=== PATIENT | male | born 1945 | race Caucasian/White ===

== ENCOUNTER 2016-09-09 08:01 | Inpatient (IN) | payer MEDICARE ==
--- NOTE | ~2016-09-09 | CN ---
Consultation Report [place] [id number] [facility] [place]. [address] NAME: TAMMY PALM : 45 STATUS : ADM IN [facility]#: [id number] AGE: 71 ADM/REG DATE : 09/09/16 MR#: [id number] REPORT SERV DATE: 09/09/16 DICTATED BY: WALDO HEADLEY DATE: 09/09/16 REPORT STATUS : Draft TRANSCRIBED BY: MODL DATE: 09/09/16 CONSULT DATE OF CONSULTATION: 09/09/2016 REASON FOR CONSULTATION: Diabetes management. HISTORY OF PRESENT ILLNESS: This is a 71-year-old gentleman who was admitted to the hospital for outpatient cardiac cath. The cath revealed multivessel coronary artery disease, and THE patient is now being evaluated for a CABG. The patient will be admitted and as the patient has a history of diabetes, Hospitalist Service was consulted to manage diabetes pre and postop. The patient otherwise has no acute complaints. The patient feels right at baseline. As far as diabetes, the patient is taking glipizide as the only medication therapy for his diabetes. The patient has never used insulin and he is yet to have any complications related to diabetes. REVIEW OF SYSTEMS: The patient denies any fevers or chills. Also, 14-point review of systems reviewed and negative other than mentioned above. MEDICATIONS: 1. Norvasc 2.5 mg p.o. daily. 2. Aspirin 81 mg p.o. daily. 3. Atorvastatin 40 mg p.o. q.h.s. 4. Coreg 12.5 mg p.o. b.i.d. 5. Glipizide XL 5 mg p.o. daily. 6. Lisinopril 2.5 mg p.o. daily. 7. Sertraline 50 mg p.o. q.h.s. 8. The patient has been on Eliquis prior to admission for atrial fibrillation. PAST MEDICAL HISTORY: 1. Coronary artery disease. 2. Fme-rpykjat-ubqxipoin diabetes type 2. 3. Hypertension. 4. Hyperlipidemia. 5. Chronic kidney disease. 6. Atrial fibrillation. 7. CVAs. PAST SURGICAL HISTORY: Right-sided varicose vein. FAMILY HISTORY: Consultation Report [place] [id number] [facility] [place]. [address] NAME: TAMMY PALM : 45 STATUS : ADM IN PAT#: [id number] AGE: 71 ADM/REG DATE : 09/09/16 MR#: [id number] REPORT SERV DATE: 09/09/16 DICTATED BY: WALDO HEADLEY DATE: 09/09/16 REPORT STATUS : Draft TRANSCRIBED BY: IRMA DATE: 09/09/16 1. Heart diseases. 2. CVA. 3. Alcoholism. 4. Kidney disease. SOCIAL HISTORY: The patient has quit smoking about 30 years ago. The patient consumes alcohol on rare occasions. The patient otherwise denies use of any illicit drugs. The patient lives at home with his , who is at bedside here in the hospital. PHYSICAL EXAMINATION: VITAL SIGNS: Temperature 98.1, blood pressure 121/79, pulse 64, respiratory rate is 21, saturating 94% on room air. GENERAL: The patient is alert and oriented x3 with no focal neurologic deficits. The patient is awake, does not appear to be in acute distress, and he is cooperative. NECK: No JVD. No lymphadenopathy. Normal thyroid. CHEST: No midline sternotomy scar and no tenderness to palpation. LUNGS: Clear to auscultation bilaterally with normal respiratory effort on room air. CARDIOVASCULAR: Regular rate and rhythm with no murmurs, rubs, or gallops, and PMI is nondisplaced. ABDOMEN: Soft and nontender with active bowel sounds and no organomegaly. EXTREMITIES: No edema. Normal distal pulses. No calf tenderness. SKIN: Clean, dry, warm, and intact. LABORATORY DATA: Sodium is 138, potassium 4.7, chloride 107, BUN 28, creatinine 1.54, glucose 137, calcium 9.7. White blood cell count is 9.8, hemoglobin 14.9, and platelets 191. ASSESSMENT: This is a 71-year-old gentleman with history of hypertension, diabetes, AND coronary artery disease, who is now being admitted for a multivessel coronary artery disease, being evaluated for CABG on Monday. 1. Multivessel coronary artery disease. 2. Bxd-lopyjgv-hquvftyry diabetes type 2. 3. Hypertension. 4. Hyperlipidemia. 5. Chronic atrial fibrillation. 6. Chronic kidney disease. 7. History of cerebrovascular accident. PLAN: My plan is to check the patient's hemoglobin A1c. As the patient appears to have quite well controlled diabetes at baseline that is mild, I think simple insulin sliding scale may suffice. We will continue to follow the patient with you and be proactive in controlling the patient's diabetes pre and postop. Thank you very much for consulting us. Hospitalist Service will continue to follow the patient with you. Consultation Report [place] [id number] [place]. [address] NAME: TAMMY PALM : 45 STATUS : ADM IN [facility]#: [id number] AGE: 71 ADM/REG DATE : 09/09/16 MR#: [id number] REPORT SERV DATE: 09/09/16 DICTATED BY: WALDO HEADLEY DATE: 09/09/16 REPORT STATUS : Draft TRANSCRIBED BY: MODL DATE: 09/09/16 [facility] [place]/MODL Waldo Headley MD / [id number] CC: Jas Sommer
--- NOTE | ~2016-09-09 | DS ---
Discharge Summary [facility] [address] [place]. [address] NAME: PARTH PALM : 45 STATUS : DIS IN PAT#: [id number] AGE: 71 ADM/REG DATE : 09/09/16 MR#: [id number] REPORT SERV DATE: 10/05/16 DICTATED BY: RICCI COOL DATE: 10/04/16 REPORT STATUS : Draft TRANSCRIBED BY: MODRonny DATE: 10/04/16 Data Collection from hospitalization DISCHARGE DIAGNOSES: 1. Coronary artery disease status post coronary artery bypass grafting. 2. Ischemic cardiomyopathy. 3. Chronic systolic congestive heart failure. 4. Mitral regurgitation status post mitral valve repair. 5. Atrial fibrillation status post maze. 6. Hypertension. 7. Hypercholesterolemia. 8. History of cerebrovascular accident. 9. Diabetes mellitus type 2. CONSULTATIONS: Dr. Waldo Guerra; Parth Barrett NEmma; Dr. Bola Sanchez. PROCEDURES PERFORMED: 1. Cardiac catheterization, 09/09/2016. 2. Median sternotomy extracorporeal circulation, urgent coronary artery bypass grafting x4, pulmonary vein isolation, left atrial appendage clip, left endoscopic vein harvest of the lesser saphenous vein, bilateral JOSE EDUARDO harvest, left radial artery harvest, rigid external fixation of the sternum with SternaLock Huang System, Prevena dressing placement, 09/12/2016. 3. Carotid blood flow study, 09/09/2016. 4. Vein mapping of the bilateral lower extremities, 09/09/2016. 5. Modified barium swallow study, 09/16/2016. MEDICATIONS: Aspirin 81 mg daily, Lipitor 40 mg at bedtime, Cordarone 200 mg twice a day, Coreg 6.25 mg twice a day, Pepcid 20 mg twice a day, Lasix 20 mg daily, NovoLog injection insulin as instructed, Imdur 30 mg daily, Senokot two tablets twice a day, Zoloft 50 mg at bedtime, Orazinc 220 mg daily, Apresoline 10 mg every eight hours as instructed, Glucophage 500 mg with breakfast, Coumadin as instructed. CONDITION AT DISCHARGE: Stable. DISPOSITION: The patient was discharged to [facility] on a mechanical soft, cardiac/diabetic diet with activities as instructed. HOSPITAL COURSE: This is a 71-year-old man, who primarily received his care at the [facility]. He has a history of a CVA in January 2016. At that time, he was found to be in atrial fibrillation and had an atrial clot and subsequent cardioembolic stroke. He had been placed on Eliquis. He had undergone myocardial perfusion imaging, which was graded high risk and showed significant ischemia. An echocardiogram showed severely diminished left ventricular ejection fraction of 25% and mild mitral and tricuspid regurgitation. It was felt the patient would need to undergo a followup coronary arteriogram. He was admitted to the hospital at this time for further evaluation and treatment. Upon admission, he was taken to the cardiac production laborer, where he underwent the above-mentioned Discharge Summary [place] [address] [place]. [address] NAME: PARTH PALM : 45 STATUS : DIS IN PAT#: [id number] AGE: 71 ADM/REG DATE : 09/09/16 MR#: [id number] REPORT SERV DATE: 10/05/16 DICTATED BY: RICCI COOL DATE: 10/04/16 REPORT STATUS : Draft TRANSCRIBED BY: IRMA DATE: 10/04/[address] Lanier. He tolerated this well and there were no complications. Following this, he was seen by Parth Barrett. The coronary arteriogram demonstrated 75% left main stenosis and significant flow-limiting disease in the first and second diagonal and left anterior descending as well as circumflex and obtuse marginal stenosis and distal right coronary artery PDA. It was felt the patient would need to undergo surgical intervention. The patient was also seen by Dr. Waldo Guerra regarding diabetes management. The patient takes glipizide as the only medication therapy for his diabetes. He had never used insulin. He had not had any complications related to his diabetes. Hemoglobin A1c was going to be checked. The patient appeared to have quite well- controlled diabetes at baseline, which was mild. It was felt that simple insulin sliding scale may suffice. A carotid blood flow study was performed as well as vein mapping of the bilateral lower extremities. The following day, he had no chest pain or shortness of breath. The patient has a decreased ejection fraction of 20%. Creatinine level was 1.54. The patient has stage 3 chronic kidney disease. He had no new complaints. His current diabetic regimen continued. On 09/11/2016, he was on IV heparin. His lungs were clear bilaterally. Creatinine was 1.5. Carotid ultrasound had shown grade 1 disease bilaterally. Hemoglobin A1c was 5.9. On 09/12/2016, the patient was taken to the operating room, where he underwent the above-mentioned procedure. He tolerated this well and there were no complications. On postop day one, he was seen by Dr. Bola Sanchez. He had been asked to see the patient regarding acute renal failure. Creatinine had risen from 1.5-2.0. His blood pressure had been kept low because of concern regarding harvesting of vein from the left forearm and perhaps just a little bit too low. White count was 15,000. He was switched to oral amiodarone. Blood pressure was well controlled. We were going to allow his blood pressure to rise a little to improve perfusion to the kidneys. He was felt to have acute kidney injury on chronic kidney disease stage 3. It was suspected that it was mostly pre- renal from hypotension. He did have a bit of confusion. He had no complaints of pain. Creatinine was 2.7. On the , he was in a normal sinus rhythm. He was off pressors. He did have a fall risk. Mediastinal drain and wires were removed. On the , the patient still had some confusion. He had no complaints of pain. Metoprolol was changed to Coreg. There was some concern about impaired swallowing. He was evaluated by Physical Therapy. Speech/Language Pathology performed a bedside swallow study. The patient had overt signs and symptoms of aspiration. Occupational Therapy also evaluated the patient. On 09/16/2016, a modified barium swallow study was performed. He was felt to have mild/moderate oropharyngeal dysphagia. No aspiration was noted. The patient said he had good pain control. He was weak, but he was making progress. We encouraged him to use incentive spirometry. Ensure was added. Creatinine level was improving. INR level was 1.4. Over the next couple of days, he had no shortness of breath. He was up sitting in a chair. He was feeling better. INR level was 3.0, creatinine was 1.78. On 09/19/2016, he was slow to ambulate. His lungs were clear bilaterally. INR level was 2.6. His heart rate was controlled and atrial fibrillation. He was on Coumadin. The next day, he was still weak. He had no chest pain. INR was 2.5. On 09/21/2016, repeat echocardiogram revealed ejection fraction of 30%. Low-dose Lasix was started. A LifeVest was approved through the [facility]. Creatinine level continued to improve and was now at baseline at 1.62. Next day, he was working with Physical Therapy. Discharge planning was performed. He seemed to be Discharge Summary [address] [address] NAME: PARTH PALM : 45 STATUS : DIS IN PAT#: [id number] AGE: 71 ADM/REG DATE : 09/09/16 MR#: [id number] REPORT SERV DATE: 10/05/16 DICTATED BY: RICCI COOL DATE: 10/04/16 REPORT STATUS : Draft TRANSCRIBED BY: MODL DATE: 10/04/16 progressing well. On 09/23/2016, INR level was 2.7. No MCKENZIE inhibitor or ARB would be given secondary to renal insufficiency. He was on hydralazine and nitrate. LifeVest was placed. Sternal incision was healing well. Discharge instructions were given. Due to his improved and stable condition, he was discharged home with the above-stated instructions. Information collected by: Maria Ines Marx I submit the above information as my discharge summary. TG/IRMA Ricci Cool M.D. / [id number] CC: Jas Sommer ZENAIDA S Michael S. Loga, N.P. Joseph Watlington, M.D.
--- NOTE | ~2016-09-09 | CN ---
Consultation Report [facility] [address] [place]. [address] NAME: TAMMY PALM : 45 STATUS : ADM IN PAT#: [id number] AGE: 71 ADM/REG DATE : 09/09/16 MR#: [id number] REPORT SERV DATE: 09/14/16 DICTATED BY: BOLA SAMUEL DATE: 09/13/16 REPORT STATUS : Draft TRANSCRIBED BY: MODL DATE: 09/13/16 NEPHROLOGY CONSULT NOTE DATE OF CONSULTATION: HISTORY OF PRESENT ILLNESS: Mr. Palm is a 71-year-old white male whom we followed before at [facility] during 01/2016 admission for CVA. He was diagnosed then with atrial fibrillation, anticoagulated with Eliquis. Subsequently, he has had progressive sharp chest pain and admitted this time for coronary arteriogram on 09/09/2016, which revealed multivessel disease and underwent a coronary artery bypass graft on 09/12/2016. Consulted for acute renal failure with creatinine going from 1.5 to 2.0. His blood pressure has been kept low because of concern regarding a harvesting of veins from his left forearm, maybe a little bit too low. Intake and output were 4 L in and 2.6 L out over the last 24 hours. He just came out of surgery late last night. PAST MEDICAL HISTORY: Systolic congestive heart failure with ejection fraction 25%-30%; atrial fib, on Eliquis, which was held for surgery; history of CVA at [facility] in 01/2016; minimal residual left-sided weakness; hyperlipidemia; hypertension; and diabetes mellitus type 2. SOCIAL HISTORY: He is . Ex-smoker. No alcohol. Lives with his family. FAMILY HISTORY: Positive for hypertension, hyperlipidemia, and diabetes mellitus. ALLERGIES: NO KNOWN DRUG ALLERGIES. HOME MEDICATIONS: Amlodipine, Eliquis, Lipitor, Coreg, Glucotrol, Prinivil, Zoloft, and aspirin 81 mg p.o. daily. REVIEW OF SYSTEMS: He has done well postop, came out of surgery late last night. This morning, was still a bit confused, had mittens on, but as he awakens, the mittens have been taken off. He is following commands, extubated, and on O2 by nasal cannula. He was seen in CV ICU. PHYSICAL EXAMINATION: VITAL SIGNS: Blood pressure 106/55, heart rate 93, respirations 24, temperature 98.4. GENERAL: He is alert, cooperative, following commands. HEENT: Unremarkable. LUNGS: Clear. CARDIOVASCULAR: Without murmurs, gallops, or rubs. ABDOMEN: Soft, benign. Bowel sounds are present. EXTREMITIES: No edema. Nontender left forearm and left calf from vein harvesting. NEUROLOGIC: Intact. Moves all four extremities well. Did not ambulate. Cannot detect much weakness on the left side over the right. Consultation Report [place] [id number] [facility] [place]. [address] NAME: TAMMY PALM : 45 STATUS : ADM IN PAT#: [id number] AGE: 71 ADM/REG DATE : 09/09/16 MR#: [id number] REPORT SERV DATE: 09/14/16 DICTATED BY: BOLA SAMUEL DATE: 09/13/16 REPORT STATUS : Draft TRANSCRIBED BY: IRMA DATE: 09/13/16 LABORATORY DATA: Creatinines gone from 1.46 on admission to 1.68 preop to 2.05 postop. Sodium is 147, potassium 4.3, chloride 114, CO2 of 24, BUN 36, creatinine 2.05. Blood sugar 132. Magnesium 2.3. White count 15,000, hemoglobin 10, hematocrit 33, platelet count 124,000. ASSESSMENT: 1. Status post coronary artery bypass grafting yesterday, 09/12/[address] Griffin. Doing well postop. 2. Atrial fibrillation. Now normal sinus rhythm on amiodarone, switching to p.o. 3. Hypertension, well controlled. If anything hypotensive now with medications, we will allow blood pressure to rise a bit to improve perfusion to the kidneys. 4. Diabetes mellitus type 2, well controlled. 5. Acute kidney injury on chronic kidney disease, stage 3. I suspect it is mostly prerenal from hypotension. We will repeat lab work and allow blood pressure to run a bit higher then order. 6. Anemia of chronic kidney disease and a postop drop. 7. History of systolic congestive heart failure with ejection fraction of 25%-30%. PLAN: We will follow, allow blood pressure to rise some, and anticipate complete recovery to baseline 1.5. COLLIN/IRMA Bola Samuel M.D. / [id number] CC: Jas Sommer ZENAIDA S Wilson M. Clements, MD
--- NOTE | ~2016-09-09 | CN ---
Consultation Report [facility] [address] [place]. [address] NAME: PARTH PALM : 45 STATUS : ADM IN PAT#: [id number] AGE: 71 ADM/REG DATE : 09/09/16 MR#: [id number] REPORT SERV DATE: 09/09/16 DICTATED BY: PARTH FERRARA DATE: 09/09/16 REPORT STATUS : Draft TRANSCRIBED BY: MODL DATE: 09/09/16 CONSULTATION NOTE DATE OF CONSULTATION: 09/09/2016 REASON FOR CONSULTATION: Multivessel coronary artery disease including left main stenosis, consideration for urgent coronary artery bypass grafting. CHIEF COMPLAINT: "I had a stroke last January and they found this clot in my heart." HISTORY OF PRESENT ILLNESS: This is a 71-year-old of [place], who receives his care at the [facility] primarily. He has a history of CVA in January 2016, and at that time, was found to be in atrial fibrillation and had atrial clot and subsequent cardioembolic stroke. He was placed on Eliquis, and was referred by the [facility] for [facility]iology consultation. He underwent myocardial perfusion imaging, which was graded high risk and showed significant ischemia, an echocardiogram which showed severely diminished left ventricular ejection fraction of 25%, and mild mitral and tricuspid regurgitation. Followup coronary arteriogram today demonstrated 75% left main stenosis and significant flow-limiting disease in the first and second diagonal and left anterior descending as well as circumflex and obtuse marginal stenosis and distal right coronary artery PDA. We were asked to see for possible coronary artery bypass grafting. The patient primarily complains of pain in his right lower extremity and mid tibia that causes him pain with walking or exertion. He has no pain at rest. He says he has had a prior x-ray of this through the [facility], but does not know the result. He denies any chest discomfort; no tightness or heaviness; no shortness of breath; no neck, back, or jaw pain. He denies any syncope or near syncope. He and his have noted over the prior year and a half significantly decreased energy and exercise tolerance with easy fatigability. PRIOR MEDICAL HISTORY: 1. CVA in January 2016. 2. Atrial fibrillation. 3. Hypercholesterolemia. 4. Hypertension. 5. Chronic systolic heart failure. 6. Type 2 diabetes mellitus, non-insulin dependent. 7. Remote history of smoking. PRIOR SURGICAL HISTORY: Significant for vein stripping of the left leg. ALLERGIES: NONE KNOWN. MEDICATIONS: Include amlodipine 2.5 mg p.o. daily; apixaban 5 mg p.o. b.i.d., last dose 09/07/2016; atorvastatin 20 mg increased to 40 at h.s. daily; carvedilol 12.5 mg p.o. Consultation Report [address] [address] NAME: PARTH PALM : 45 STATUS : ADM IN [facility]#: [id number] AGE: 71 ADM/REG DATE : 09/09/16 MR#: [id number] REPORT SERV DATE: 09/09/16 DICTATED BY: PARTH FERRARA DATE: 09/09/16 REPORT STATUS : Draft TRANSCRIBED BY: IRMA DATE: 09/09/16 b.i.d.; Glucotrol XL 5 mg p.o. daily; lisinopril 2.5 mg p.o. daily; sertraline 25 mg p.o. daily; and aspirin 81 mg p.o. daily. FAMILY HISTORY: Significant for brother with hypertension; mother had hyperlipidemia, hypertension, and pacemaker as well as diabetes mellitus; sister with hypertension and hyperlipidemia. 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 He is a former tobacco user, smoker of cigarettes for 15 years up to one and half or two packs per day. He denies use of alcohol or illicit drugs. He is and lives with his and has three grown children. REVIEW OF SYSTEMS: GENERAL: Negative for any recent weight change, fevers, malaise, or night sweats. ENT: He wears glasses following prior cataract surgery. He occasionally has ringing in his ears. He has upper and lower dentures and few remaining lower teeth. He denies any neck or back problems. RESPIRATORY: Negative for chronic cough, wheezing, hemoptysis, or lung problems. CV: Negative for any chest pain, syncope or near syncope, shortness of breath, paroxysmal nocturnal dyspnea or orthopnea. GI: Negative. : Positive for incontinence. MUSCULOSKELETAL: Positive for right lower extremity pain with exertion of walking in the mid tibial area. Negative for any fractures. NEURO: Positive for prior CVA with no obvious residual deficits. ENDOCRINE: As above. HEME/ONC: Negative. ENVIRONMENTAL: Positive for exposure to Agent [place] in [place]. PHYSICAL EXAMINATION: GENERAL: He is an affable elderly white male, in no acute distress. Weight is 103.19 kg and height 193.04 cm giving him BMI of 27.7. VITAL SIGNS: Blood pressure 121/79; temperature 98.1; pulse 64 and regular; respirations 21, regular and unlabored; and saturation 94% on room air. HEENT: Normocephalic, balding, and atraumatic. Pupils are equal, round, reactive to light and accommodation. He is wearing glasses. Sclerae are clear. Conjunctivae are pink. Oral and buccal mucosa pink and moist and few remaining lower teeth. Mallampati class III airway. NECK: Supple. No restricted range of motion. No carotid bruits. No jugular venous distention. CHEST: Clear to auscultation. No use of accessory muscles. No chest wall tenderness. No deformity. BREASTS: Not examined. CV: Regular rate and rhythm without murmur or rub. He has palpable symmetric and central peripheral pulses. No clubbing, cyanosis, or edema. He has ropey lower extremity Consultation Report [address] [address] NAME: PARTH PALM : 45 STATUS : ADM IN [facility]#: [id number] AGE: 71 ADM/REG DATE : 09/09/16 MR#: [id number] REPORT SERV DATE: 09/09/16 DICTATED BY: PARTH FERRARA DATE: 09/09/16 REPORT STATUS : Draft TRANSCRIBED BY: MODL DATE: 09/09/16 varicosities and there is scarring visible at the left knee consistent with prior vein stripping. He has skin discoloration, rubor, and hemosiderin staining of the lower extremities. ABDOMEN: Soft, obese, and nontender with normoactive bowel sounds. No hepatosplenomegaly. /RECTAL: Declined. MUSCULOSKELETAL: No kyphoscoliosis. No asymmetry. NEURO/PSYCH: He is alert and oriented to day, date, place, and situation. Speech is clear and fluent. No focal neurologic deficits. DATA: His coronary arteriogram, which I reviewed today showing flow-limiting disease. His echocardiogram results as mentioned above. EKG shows atrial fibrillation with left anterior fascicular block. His electrolyte profile is significant for elevated creatinine of 1.54, was 1.37 on the 3rd. CBC shows WBC is 9.8, hemoglobin 14.9 g, hematocrit 44.2%, and platelets 191,000. IMPRESSION: Multivessel flow-limiting coronary artery disease with left main involvement and severely diminished left ventricular function in generally asymptomatic 71-year-old gentleman. We are asked to see and provide coronary artery bypass grafting and this is discussed with the patient and his today. In preparation for this procedure, we will obtain vein mapping of the lower extremities, as well as carotid ultrasound and these have been ordered and are pending. We talked with him about the surgery, usual perioperative course, indications, benefits, and serious risks which include things like bleeding, infection, pneumonia, blood transfusions, damage to the kidneys including kidney failure and dialysis, damage to the liver and lungs, heart attack, stroke, abnormal heart rhythm, need for pacemaker, mediastinitis, and even . He indicates his understanding. Using Society of Thoracic Surgeons database, predicted mortality was 3.502%, morbidity or mortality was slightly elevated at 31.75%. This is discussed with the patient and his , and they understand and agree to proceed. We will review his carotid ultrasound and lower extremity vein mapping as well as creatinine on Monday and will likely proceed with surgery Monday afternoon if these are in order. We appreciate the opportunity to participate in this gentleman's care. MILES/AMYL Parth Ferrara N.P. / [id number] CC: Jas Sommer ZENAIDA S Wilson M. Clements, MD
--- NOTE | ~2016-09-09 | OP ---
Record Of Operation [place] [address] [facility] [place]. [address] NAME: TAMMY PALM : 45 STATUS : ADM IN PAT#: [id number] AGE: 71 ADM/REG DATE : 09/09/16 MR#: [id number] REPORT SERV DATE: 09/13/16 DICTATED BY: RAI REECE DATE: 09/12/16 REPORT STATUS : Draft TRANSCRIBED BY: MODL DATE: 09/12/16 DATE OF PROCEDURE: 09/12/2016 ATTENDING PHYSICIAN: Rai Reece MD. REFERRING PHYSICIAN: Ricci Villalpando M.D. ASSISTANTS: 1. Doni Reece. 2. Velasquez Romano. ANESTHESIOLOGIST: Emmanuel Desir M.D. PREOPERATIVE DIAGNOSES: 1. Ischemic cardiomyopathy. 2. Three-vessel coronary disease. 3. Hypertension. 4. Hyperlipidemia. 5. Diabetes mellitus. 6. Chronic atrial fibrillation. 7. Prior stroke. 8. Non-ST elevation myocardial infarction. 9. Systolic congestive heart failure. 10.Chronic kidney disease, stage III. POSTOPERATIVE DIAGNOSES: 1. Ischemic cardiomyopathy. 2. Three-vessel coronary disease. 3. Hypertension. 4. Hyperlipidemia. 5. Diabetes mellitus. 6. Chronic atrial fibrillation. 7. Prior stroke. 8. Non-ST elevation myocardial infarction. 9. Chronic kidney disease, stage III. OPERATION PROCEDURE PERFORMED: 1. Median sternotomy. 2. Extracorporeal circulation. 3. Urgent coronary artery bypass grafting x4. 4. Pulmonary vein isolation. 5. Left atrial appendage clip. 6. Left endoscopic vein harvest of the lesser saphenous vein. 7. Bilateral JOSE EDUARDO harvest. 8. Left radial artery harvest. 9. Rigid external fixation of the sternum with SternaLock Huang system. Record Of Operation [address] [place]. [address] NAME: TAMMY PALM : 45 STATUS : ADM IN PAT#: [id number] AGE: 71 ADM/REG DATE : 09/09/16 MR#: [id number] REPORT SERV DATE: 09/13/16 DICTATED BY: RAI REECE DATE: 09/12/16 REPORT STATUS : Draft TRANSCRIBED BY: MODL DATE: 09/12/16 10.Prevena dressing placement. COMPLICATIONS: None. TUBES AND DRAINS: 24-Czech Tony to the left and right pleural space. 32-Czech straight mediastinal chest tube. Ventricular pacing wires. POSTOPERATIVE CONDITION: To CVICU, weaned from cardiopulmonary bypass, on dobutamine and Milrinone. INTRAOPERATIVE FINDINGS: Patient had a very large heart, was very limited with conduit and there was no vein except for an 8 cm piece of the lesser saphenous vein which was approximately 2 to 3 mm in size. The bilateral JOSE EDUARDO's were taken. The right was taken as a free graft, these were 3 mm in size. The left radial was harvested in open fashion, this was 3 mm in size. Transesophageal echo revealed EF approximately 25% with trace MR; post revealed preserved ejection fraction with unchanged mitral regurgitation. DETAILS OF CARDIOPULMONARY BYPASS GRAFTIN. Graft #1, left internal mammary artery to left anterior descending. This was a 2 mm target. 2. Graft #2, reverse greater saphenous vein graft, aorta to D2. This was 1.75 mm target. 3. Graft #3, free right internal mammary artery, aorta to obtuse marginal #2. This was a 1.75 mm target. 4. Graft #4, left radial artery, aorta to posterior descending artery. This was 1.75 mm target. Excellent Doppler signals both pre and post protamine in all 4 grafts. DETAILS OF STERNAL PLATING: Sternal plate: There were three X plates placed on the sternum. The upper X plate had eight 16 mm screws. The two bottom X plates had eight 14 mm screws apiece. There was a 100 degree plate placed on the manubrium which had four 16 mm screws placed. INDICATIONS FOR PROCEDURE: Mr. Palm is a 71-year-old gentleman who presented with congestive heart failure, underwent coronary catheterization and was found to have severe three-vessel disease with a severely depressed ejection fraction of approximately 25%. In addition patient has chronic kidney disease, was found to have a creatinine of approximately 1.4. He was seen; risks, benefits, alternatives were discussed with the patient including, but not limited to, bleeding, infection, stroke, , heart attack, need for future operations. All questions were answered. His STS score was discussed with the patient of total mortality risk less than 5% and total morbidity/mortality less than 30% were discussed, all questions were answered. DESCRIPTION OF PROCEDURE: Patient was brought to the operating room, placed supine on the operating room table. After satisfactory induction of general endotracheal anesthesia, he was prepped and draped in the usual sterile fashion. Preoperative studies showed that his greater saphenous veins on bilateral sides were unusable and that he had had prior vein Record Of Operation [place] [address] [facility] [place]. [address] NAME: TAMMY PALM : 45 STATUS : ADM IN PAT#: [id number] AGE: 71 ADM/REG DATE : 09/09/16 MR#: [id number] REPORT SERV DATE: 09/13/16 DICTATED BY: RAI REECE DATE: 09/12/16 REPORT STATUS : Draft TRANSCRIBED BY: MODRonny DATE: 09/12/16 stripping on one side. The vein mapping indicated that his left lesser saphenous was potentially only usable side of vein. Lesser saphenous was harvested in endoscopic fashion yielding the entire calf vein; however, only approximately 8 to 10 cm segment was of appropriate size. The remainder of the vein was 1 mm in size and unusable. A left radial harvest was performed in open fashion. Federico's test revealed a patent palmar arch with no change in the pulse oximetry when the patient's radial artery was compressed. The radial artery was harvested in open fashion, placed, and after open fashion harvesting, the incision was closed with 2-0 Vicryl, 4-0 Monocryl. Arm was wrapped sterilely, placed at the side. Median sternotomy was then performed. Skin, subcutaneous tissues were divided. Clavipectoral fascia was divided. The sternum was divided in the midline. A Rultract retractor was placed and the left internal mammary artery was harvested in a pedicle fashion from the takeoff under the subclavian vein to the bifurcation of the diaphragm. The Rultract retractor was then placed on the other side and the internal mammary artery on the right was harvested as a free graft from its takeoff under the subclavian vein to the bifurcation of the diaphragm. Systemic heparinization was achieved after three minutes. The pedicle was clipped proximally and clipped distally and divided. Hemostasis was obtained. A 24-Czech Tony was placed in the right pleural space and exteriorized. The internal mammary artery on the left was then clipped and divided at the bifurcation of the diaphragm. A sternal retractor was placed. Thymic tissue was divided in the midline of the innominate vein, pericardium was opened, pericardial well was created, ascending aortic cannulation was achieved. Dual stage venous cannula was placed in the right atrial appendage. Antegrade root vent and cardioplegia tack was placed. Conduit was prepared for bypass and left internal mammary artery was brought down through a wide V in the pericardium. The cardiopulmonary bypass was initiated after documentation of an adequate ACT. The right and left pulmonary vein isolation was then performed using an atrial clamp AtriCure device with three applications on each pulmonary vein cuff according to field applications specialist's specifications. This was done after circumferentially dissecting out the left and right superior and inferior pulmonary veins. After this was done, the AtriClip device was sized to a 40 mm clip and a 40 mm clip was then deployed into the left atrial appendage. The cross-clamp was brought up, heart was arrested with cold antegrade cardioplegia, switching the intermittent aliquots of cold antegrade cardioplegia every 15 to 20 minutes throughout the remainder of the cross-clamp. The grafts were then performed as mentioned in the findings. All distal anastomoses were performed using 8-0 Surgipro. The proximal grafts for the reverse greater saphenous vein graft to the free ELSA and the left radial artery were then performed under cross-clamp. A small aortotomy was performed, enlarged with a 4 mm punch and running continuous anastomoses were then performed using a 7- 0 Prolene. Graft markers were placed. The left internal mammary artery was then brought down through a wide V in the pericardium and then anastomosed to the anterior LAD using 8-0 Surgipro. There was excellent Doppler signals both pre and post the anastomosis in the left anterior descending. The epicardium was attached to the heart in two places. The grafts were de-aired, cross-clamp was removed. After removing the clamp, it appeared that the radial artery was rotated prior to its anastomosis on the aorta. Partial occluding clamp was placed in order to try to redo this proximal anastomoses. Proximal cross-clamp could not occlude the aorta, so the cross-clamp was reapplied and the heart was rearrested. Then anastomosis was taken down. The radial artery was straightened and a repeat proximal anastomosis was performed. Cross-clamp was again removed. Ventricular pacing wires were placed. Dobutamine was started, Milrinone was loaded and started, and the patient was able Record Of [address] [place]. [address] NAME: TAMMY PALM : 45 STATUS : ADM IN PAT#: [id number] AGE: 71 ADM/REG DATE : 09/09/16 MR#: [id number] REPORT SERV DATE: 09/13/16 DICTATED BY: RAI REECE DATE: 09/12/16 REPORT STATUS : Draft TRANSCRIBED BY: MODL DATE: 09/12/16 to be weaned from cardiopulmonary bypass without incident. Protamine was administered. The patient was decannulated. All cannulation sites were oversewn with 4-0 Prolene. Hemostasis was obtained. A 32-Czech chest tube was placed under the sternum. The pericardium was loosely reapproximated over the ascending aorta and the right ventricle. The sternum was then reapproximated. Stainless steel sternal wires were used to bring the sternum together and rigid external fixation was performed with the SternaLock Huang plating system. A 100 degree plate was placed on the manubrium, anchored into position with four 16 mm screws and three X plates were used along the body of the sternum with one X plate at the top of the sternum being secured with 16 mm screws and the remainder of the X plates being secured with 14 mm screws. Clavipectoral fascia was reapproximated using running #1 StrataFix. The subcutaneous tissues were closed using running #1 StrataFix. The skin and subcutaneous tissues were closed using 2-0 Quill and Prevena dressing was placed. The patient was transferred to CVICU in critical, stable condition. C/IRMA Rai Reece MD / [id number] CC: Ricci Villalpando M.D.
[~2016-09-09 08:01] MED LIST: COREG25 PO; DSS PO; ELIQUIS 5 MG TAB5 MG PO; GLUCXL5 PO; LIPITOR20 PO; NORV25 PO; PRIN2.5 PO; ZOL50 PO
[2016-09-09 08:35] LABS: BASOPHILS 0.5 %; BASOPHILS ABSOLUTE 0.05 10/3/uL (0.0-0.16); EOSINOPHILS 2.8 %; EOSINOPHILS ABSOLUTE 0.27 10/3/uL (0.0-0.53); IMMATURE GRANULOCYTES 0.3 %; IMMATURE GRANULOCYTES ABSOLUTE 0.03 10/3/uL (0.0-0.11); LYMPHOCYTES 26.4 %; LYMPHOCYTES ABSOLUTE 2.57 10/3/uL (0.67-4.30); MEAN CORPUSCULAR HEMOGLOB 26.8 pg (26.0-34.0); MEAN PLATELET VOLUME 11.3 fL (9.2-13.0); MONOCYTES ABSOLUTE 0.78 10/3/uL (0.21-1.20); NEUTROPHILS ABSOLUTE 6.05 10/3/uL (2.02-8.40); PLATELET COUNT 191 10/3/uL (150-400); RED CELL COUNT 5.57 10/6/uL (4.7-6.1); WHITE BLOOD CELLS 9.8 10/3/uL (4.5-10.5)
[2016-09-09 08:36] LABS: HEMATOCRIT 44.2 % (40.0-51.0); HEMOGLOBIN 14.9 g/dL (13.6-17.8); MANUAL DIFF NO %; MEAN CORPUS HGB CONC 33.7 g/dL (32.0-36.0); MEAN CORPUSCULAR VOLUME 79.4 fL (80-100)
[2016-09-09 08:51] LABS: BUN (BLOOD UREA NITROGEN) 28 MG/DL (6-23); CALCIUM, SERUM 9.7 MG/DL (8.5-10.4); CHLORIDE, SERUM 107 MMOL/L (96-112); CHOL/HDL RATIO(NOT ORDER) 3.2 (0-5); CHOLESTEROL 154 MG/DL (< 200); CO2 (CARBON DIOXIDE) 24 MMOL/L (24-34); CREATININE 1.54 MG/DL (0.70-1.30); GFR AFRICAN AMERICAN 52 ML/MIN (>=60); GFR NON AFRICAN AMERICAN 45 ML/MIN (>=60); HDL CHOLESTEROL 48 MG/DL (> 39); LDL CHOLESTEROL 88 MG/DL (< 130); NON-HDL CHOLESTEROL 106 MG/DL (< 160); SODIUM, SERUM 138 MMOL/L (135-148); TRIGLYCERIDE 91 MG/DL (< 150)
[2016-09-09 08:52] LABS: GLUCOSE, SERUM 137 MG/DL (60-99); POTASSIUM, SERUM 4.7 MMOL/L (3.5-5.3)
[2016-09-11 04:51] LABS: BASOPHILS 0.4 %; BASOPHILS ABSOLUTE 0.04 10/3/uL (0.0-0.16); EOSINOPHILS 2.9 %; EOSINOPHILS ABSOLUTE 0.26 10/3/uL (0.0-0.53); HEMATOCRIT 41.4 % (40.0-51.0); HEMOGLOBIN 13.4 g/dL (13.6-17.8); IMMATURE GRANULOCYTES 0.1 %; IMMATURE GRANULOCYTES ABSOLUTE 0.01 10/3/uL (0.0-0.11); LYMPHOCYTES 29.9 %; LYMPHOCYTES ABSOLUTE 2.72 10/3/uL (0.67-4.30); MEAN CORPUS HGB CONC 32.4 g/dL (32.0-36.0); MEAN CORPUSCULAR VOLUME 80.2 fL (80-100); MEAN PLATELET VOLUME 12.1 fL (9.2-13.0); MONOCYTES ABSOLUTE 0.64 10/3/uL (0.21-1.20); NEUTROPHILS 59.7 %; NEUTROPHILS ABSOLUTE 5.43 10/3/uL (2.02-8.40); PLATELET COUNT 154 10/3/uL (150-400); RBC DISTRIBUTION WIDTH 15.1 % (12.0-16.0); RED CELL COUNT 5.16 10/6/uL (4.7-6.1); WHITE BLOOD CELLS 9.1 10/3/uL (4.5-10.5)
[2016-09-11 04:55] LABS: MANUAL DIFF NO %; PARTIAL THROMBO TIME 59.7 SEC (22.5-37.2)
[2016-09-11 05:04] LABS: BUN (BLOOD UREA NITROGEN) 25 MG/DL (6-23); CALCIUM, SERUM 9.3 MG/DL (8.5-10.4); CHLORIDE, SERUM 108 MMOL/L (96-112); CO2 (CARBON DIOXIDE) 25 MMOL/L (24-34); CREATININE 1.51 MG/DL (0.70-1.30); GFR AFRICAN AMERICAN 53 ML/MIN (>=60); GFR NON AFRICAN AMERICAN 46 ML/MIN (>=60); GLUCOSE, SERUM 136 MG/DL (60-99); POTASSIUM, SERUM 4.3 MMOL/L (3.5-5.3); SODIUM, SERUM 140 MMOL/L (135-148)
[2016-09-11 08:22] LABS: PLATELET ESTIMATE ADQ (ADEQUATE)
[2016-09-11 08:23] LABS: BURR CELLS 1+ (3-10/OIF) (0-2/OIF); POIKILOCYTOSIS 1+ (5-10/OIF) (0-5/OIF)
[2016-09-12 07:05] LABS: BASOPHILS 0.3 %; BASOPHILS ABSOLUTE 0.03 10/3/uL (0.0-0.16); EOSINOPHILS 2.8 %; HEMOGLOBIN 13.9 g/dL (13.6-17.8); IMMATURE GRANULOCYTES 0.3 %; IMMATURE GRANULOCYTES ABSOLUTE 0.03 10/3/uL (0.0-0.11); LYMPHOCYTES 27.9 %; LYMPHOCYTES ABSOLUTE 2.98 10/3/uL (0.67-4.30); MEAN CORPUS HGB CONC 32.3 g/dL (32.0-36.0); MEAN CORPUSCULAR HEMOGLOB 26.2 pg (26.0-34.0); MEAN CORPUSCULAR VOLUME 81.1 fL (80-100); MEAN PLATELET VOLUME 11.7 fL (9.2-13.0); MONOCYTES 7.4 %; MONOCYTES ABSOLUTE 0.79 10/3/uL (0.21-1.20); NEUTROPHILS 61.3 %; NEUTROPHILS ABSOLUTE 6.56 10/3/uL (2.02-8.40); PLATELET COUNT 144 10/3/uL (150-400); WHITE BLOOD CELLS 10.7 10/3/uL (4.5-10.5)
[2016-09-12 07:10] LABS: MANUAL DIFF NO %
[2016-09-12 07:20] LABS: BUN (BLOOD UREA NITROGEN) 28 MG/DL (6-23); CALCIUM, SERUM 9.2 MG/DL (8.5-10.4); CHLORIDE, SERUM 107 MMOL/L (96-112); CO2 (CARBON DIOXIDE) 25 MMOL/L (24-34); CREATININE 1.46 MG/DL (0.70-1.30); GFR AFRICAN AMERICAN 55 ML/MIN (>=60); GFR NON AFRICAN AMERICAN 48 ML/MIN (>=60); GLUCOSE, SERUM 118 MG/DL (60-99); SODIUM, SERUM 138 MMOL/L (135-148)
[2016-09-12 09:39] LABS: PROTIME (NOT ORD) 12.8 SEC (12.0-14.5)
[2016-09-12 12:27] LABS: ASCORBIC ACID (UR NOT ORDER) NEG (NEG); BILIRUBIN, URINE NEGATIVE (NEG); KETONE, URINE NEGATIVE (NEG); LEUKOCYTE ESTERASE(NOT OR NEG (NEG); WBC (NOT ORDERED) (RFLEX) < 1 (0-5)
[2016-09-12 21:46] LABS: BE (BASE EXCESS) -6.5 MEQ/L (0 +/- 2.5); CARBOXYHEMOGLOBIN 0.9 % (0-3); HCO3 (ACTUAL BICARBONATE) 19.5 MEQ/L (23-27); INSTRUMENT SERIAL # 11843; METHEMOGLOBIN 0.5 % (0-3); MODE SIMV; O2 CONTENT 17.9 VOL% (18-24); OPERATOR ID 23712; PCO2 (CO2 TENSION) 40 MMHG (35-45); PO2 (O2 TENSION) 130 MMHG (79-93); SAMPLE Arterial; TIDAL VOLUME 800 ML
[2016-09-12 22:00] LABS: HEMOGLOBIN 11.9 g/dL (13.6-17.8); MEAN CORPUS HGB CONC 32.7 g/dL (32.0-36.0); MEAN CORPUSCULAR HEMOGLOB 26.2 pg (26.0-34.0); MEAN CORPUSCULAR VOLUME 80.2 fL (80-100); MEAN PLATELET VOLUME 11.7 fL (9.2-13.0); PLATELET COUNT 106 10/3/uL (150-400); RBC DISTRIBUTION WIDTH 14.9 % (12.0-16.0); RED CELL COUNT 4.54 10/6/uL (4.7-6.1)
[2016-09-12 22:04] LABS: WHITE BLOOD CELLS 17.7 10/3/uL (4.5-10.5)
[2016-09-12 22:05] LABS: HEMATOCRIT 36.4 % (40.0-51.0)
[2016-09-12 22:07] LABS: MANUAL DIFF YES %
[2016-09-12 22:08] LABS: INTERNATIONAL NORMAL RATI 1.3 UNITS (-); PARTIAL THROMBO TIME 33.1 SEC (22.5-37.2); PROTIME (NOT ORD) 16.2 SEC (12.0-14.5)
[2016-09-12 22:12] LABS: BUN (BLOOD UREA NITROGEN) 30 MG/DL (6-23); CALCIUM, SERUM 8.9 MG/DL (8.5-10.4); CHLORIDE, SERUM 112 MMOL/L (96-112); CO2 (CARBON DIOXIDE) 22 MMOL/L (24-34); CREATININE 1.68 MG/DL (0.70-1.30); GFR AFRICAN AMERICAN 47 ML/MIN (>=60); GFR NON AFRICAN AMERICAN 40 ML/MIN (>=60); SODIUM, SERUM 143 MMOL/L (135-148)
[2016-09-12 22:13] LABS: GLUCOSE, SERUM 157 MG/DL (60-99); POTASSIUM, SERUM 4.6 MMOL/L (3.5-5.3)
[2016-09-12 22:22] LABS: BAND NEUTROPHILS 21 %; IMMATURE GRANS ABSOLUTE (CALC) 0.18 10/3/uL (0.0-0.11); LYMPHOCYTES 2 %; LYMPHOCYTES ABSOLUTE (CALC) 0.35 10/3/uL (0.67-4.30); METAMYELOCYTES 1 %; MONOCYTES 1 %; MONOCYTES ABSOLUTE (CALC) 0.18 10/3/uL (0.21-1.20); NEUTROPHILS ABSOLUTE (CALC) 16.99 10/3/uL (2.02-8.40); SEGMENTED NEUTROPHIL (0) 75 %; TOTAL NUCLEATED CELLS 100
[2016-09-12 22:35] LABS: BURR CELLS 1+ (3-10/OIF) (0-2/OIF); PLATELET ESTIMATE SLT DEC (ADEQUATE)
[2016-09-13 02:08] LABS: BE (BASE EXCESS) -5.1 MEQ/L (0 +/- 2.5); CARBOXYHEMOGLOBIN 0.6 % (0-3); DEVICE NRB; HCO3 (ACTUAL BICARBONATE) 20.7 MEQ/L (23-27); INSTRUMENT SERIAL # 11843; METHEMOGLOBIN 0.6 % (0-3); O2 CONTENT 15.5 VOL% (18-24); OPERATOR ID 23712; PCO2 (CO2 TENSION) 41 MMHG (35-45); PO2 (O2 TENSION) 74 MMHG (79-93); SAMPLE Arterial; pH 7.32 (7.37-7.43)
[2016-09-13 04:45] LABS: BUN (BLOOD UREA NITROGEN) 36 MG/DL (6-23); CALCIUM, SERUM 8.8 MG/DL (8.5-10.4); CHLORIDE, SERUM 114 MMOL/L (96-112); CO2 (CARBON DIOXIDE) 24 MMOL/L (24-34); CREATININE 2.05 MG/DL (0.70-1.30); GFR AFRICAN AMERICAN 37 ML/MIN (>=60); GFR NON AFRICAN AMERICAN 32 ML/MIN (>=60); GLUCOSE, SERUM 132 MG/DL (60-99); POTASSIUM, SERUM 4.3 MMOL/L (3.5-5.3); SODIUM, SERUM 147 MMOL/L (135-148)
[2016-09-13 04:54] LABS: BASOPHILS 0.1 %; BASOPHILS ABSOLUTE 0.01 10/3/uL (0.0-0.16); EOSINOPHILS 0 %; HEMATOCRIT 33.4 % (40.0-51.0); HEMOGLOBIN 10.8 g/dL (13.6-17.8); IMMATURE GRANULOCYTES 0.4 %; IMMATURE GRANULOCYTES ABSOLUTE 0.07 10/3/uL (0.0-0.11); LYMPHOCYTES ABSOLUTE 0.63 10/3/uL (0.67-4.30); MANUAL DIFF NO %; MEAN CORPUS HGB CONC 32.3 g/dL (32.0-36.0); MEAN CORPUSCULAR HEMOGLOB 26.1 pg (26.0-34.0); MEAN CORPUSCULAR VOLUME 80.7 fL (80-100); MEAN PLATELET VOLUME 11.6 fL (9.2-13.0); MONOCYTES 6.9 %; MONOCYTES ABSOLUTE 1.09 10/3/uL (0.21-1.20); NEUTROPHILS 88.6 %; NEUTROPHILS ABSOLUTE 13.97 10/3/uL (2.02-8.40); PLATELET COUNT 124 10/3/uL (150-400); RED CELL COUNT 4.14 10/6/uL (4.7-6.1); WHITE BLOOD CELLS 15.8 10/3/uL (4.5-10.5)
[2016-09-13 11:54] LABS: ASCORBIC ACID (UR NOT ORDER) NEG (NEG); BILIRUBIN, URINE NEGATIVE (NEG); KETONE, URINE NEGATIVE (NEG); LEUKOCYTE ESTERASE(NOT OR NEG (NEG); WBC (NOT ORDERED) (RFLEX) 2 (0-5)
[2016-09-13 11:57] LABS: CREATININE, URINE 39.7 MG/DL
[2016-09-13 19:49] LABS: CHLORIDE, SERUM 112 MMOL/L (96-112); CO2 (CARBON DIOXIDE) 22 MMOL/L (24-34); GLUCOSE, SERUM 145 MG/DL (60-99); PHOSPHORUS, SERUM 5.2 MG/DL (2.5-4.5); POTASSIUM, SERUM 4.8 MMOL/L (3.5-5.3); SODIUM, SERUM 143 MMOL/L (135-148)
[2016-09-13 19:51] LABS: ALBUMIN 3.7 G/DL (3.5-5.0); BUN (BLOOD UREA NITROGEN) 47 MG/DL (6-23); CREATININE 2.72 MG/DL (0.70-1.30); GFR AFRICAN AMERICAN 26 ML/MIN (>=60); GFR NON AFRICAN AMERICAN 22 ML/MIN (>=60)
[2016-09-13 22:28] LABS: BASOPHILS 0 %; BASOPHILS ABSOLUTE 0.01 10/3/uL (0.0-0.16); EOSINOPHILS 0 %; HEMATOCRIT 33.2 % (40.0-51.0); HEMOGLOBIN 10.7 g/dL (13.6-17.8); IMMATURE GRANULOCYTES 0.7 %; IMMATURE GRANULOCYTES ABSOLUTE 0.14 10/3/uL (0.0-0.11); LYMPHOCYTES 4.7 %; LYMPHOCYTES ABSOLUTE 1.02 10/3/uL (0.67-4.30); MEAN CORPUS HGB CONC 32.2 g/dL (32.0-36.0); MEAN CORPUSCULAR HEMOGLOB 25.9 pg (26.0-34.0); MEAN CORPUSCULAR VOLUME 80.4 fL (80-100); MEAN PLATELET VOLUME 11.1 fL (9.2-13.0); MONOCYTES 7.3 %; MONOCYTES ABSOLUTE 1.56 10/3/uL (0.21-1.20); NEUTROPHILS 87.3 %; NEUTROPHILS ABSOLUTE 18.78 10/3/uL (2.02-8.40); PLATELET COUNT 88 10/3/uL (150-400); RBC DISTRIBUTION WIDTH 15.6 % (12.0-16.0); RED CELL COUNT 4.13 10/6/uL (4.7-6.1); WHITE BLOOD CELLS 21.5 10/3/uL (4.5-10.5)
[2016-09-13 22:29] LABS: MANUAL DIFF NO %
[2016-09-13 22:44] LABS: BURR CELLS 1+ (3-10/OIF) (0-2/OIF); ELLIPTOCYTES 1+ (3-10/OIF) (0-2/OIF); PLATELET ESTIMATE DEC (ADEQUATE)
[2016-09-14 03:42] LABS: BASOPHILS 0 %; BASOPHILS ABSOLUTE 0.01 10/3/uL (0.0-0.16); EOSINOPHILS 0 %; HEMATOCRIT 35.2 % (40.0-51.0); HEMOGLOBIN 11.2 g/dL (13.6-17.8); IMMATURE GRANULOCYTES 0.3 %; IMMATURE GRANULOCYTES ABSOLUTE 0.07 10/3/uL (0.0-0.11); LYMPHOCYTES 6.2 %; LYMPHOCYTES ABSOLUTE 1.28 10/3/uL (0.67-4.30); MEAN CORPUS HGB CONC 31.8 g/dL (32.0-36.0); MEAN CORPUSCULAR HEMOGLOB 25.7 pg (26.0-34.0); MEAN CORPUSCULAR VOLUME 80.7 fL (80-100); MEAN PLATELET VOLUME 12.3 fL (9.2-13.0); MONOCYTES ABSOLUTE 1.84 10/3/uL (0.21-1.20); NEUTROPHILS 84.5 %; NEUTROPHILS ABSOLUTE 17.32 10/3/uL (2.02-8.40); PLATELET COUNT 113 10/3/uL (150-400); RBC DISTRIBUTION WIDTH 15.4 % (12.0-16.0); RED CELL COUNT 4.36 10/6/uL (4.7-6.1); WHITE BLOOD CELLS 20.5 10/3/uL (4.5-10.5)
[2016-09-14 03:46] LABS: MANUAL DIFF NO %
[2016-09-14 04:05] LABS: ALBUMIN 3.8 G/DL (3.5-5.0); CALCIUM, SERUM 9.2 MG/DL (8.5-10.4); CHLORIDE, SERUM 110 MMOL/L (96-112); CO2 (CARBON DIOXIDE) 26 MMOL/L (24-34); CREATININE 2.79 MG/DL (0.70-1.30); GFR AFRICAN AMERICAN 25 ML/MIN (>=60); GFR NON AFRICAN AMERICAN 22 ML/MIN (>=60); PHOSPHORUS, SERUM 5.5 MG/DL (2.5-4.5); POTASSIUM, SERUM 4.8 MMOL/L (3.5-5.3); SODIUM, SERUM 144 MMOL/L (135-148)
[2016-09-14 04:06] LABS: BUN (BLOOD UREA NITROGEN) 51 MG/DL (6-23); GLUCOSE, SERUM 99 MG/DL (60-99)
[2016-09-14 05:55] LABS: BURR CELLS 1+ (3-10/OIF) (0-2/OIF); HYPOCHROMIA 1+ (3-10/OIF) (0-2/OIF); PLATELET ESTIMATE SLT DEC (ADEQUATE)
[2016-09-15 06:51] LABS: ALBUMIN 3.3 G/DL (3.5-5.0); BUN (BLOOD UREA NITROGEN) 62 MG/DL (6-23); CHLORIDE, SERUM 110 MMOL/L (96-112); CO2 (CARBON DIOXIDE) 21 MMOL/L (24-34); CREATININE 2.42 MG/DL (0.70-1.30); GFR AFRICAN AMERICAN 30 ML/MIN (>=60); GFR NON AFRICAN AMERICAN 26 ML/MIN (>=60); POTASSIUM, SERUM 4.6 MMOL/L (3.5-5.3); SODIUM, SERUM 142 MMOL/L (135-148)
[2016-09-15 06:52] LABS: GLUCOSE, SERUM 215 MG/DL (60-99); PHOSPHORUS, SERUM 3.2 MG/DL (2.5-4.5)
[2016-09-15 06:53] LABS: BASOPHILS 0.1 %; BASOPHILS ABSOLUTE 0.01 10/3/uL (0.0-0.16); EOSINOPHILS 0 %; HEMATOCRIT 32.6 % (40.0-51.0); HEMOGLOBIN 10.7 g/dL (13.6-17.8); IMMATURE GRANULOCYTES 0.2 %; IMMATURE GRANULOCYTES ABSOLUTE 0.04 10/3/uL (0.0-0.11); LYMPHOCYTES 7.1 %; LYMPHOCYTES ABSOLUTE 1.26 10/3/uL (0.67-4.30); MEAN CORPUS HGB CONC 32.8 g/dL (32.0-36.0); MEAN CORPUSCULAR HEMOGLOB 25.8 pg (26.0-34.0); MEAN CORPUSCULAR VOLUME 78.7 fL (80-100); MONOCYTES 7.4 %; MONOCYTES ABSOLUTE 1.31 10/3/uL (0.21-1.20); NEUTROPHILS 85.2 %; NEUTROPHILS ABSOLUTE 15.12 10/3/uL (2.02-8.40); PLATELET COUNT 94 10/3/uL (150-400); RBC DISTRIBUTION WIDTH 15.7 % (12.0-16.0); RED CELL COUNT 4.14 10/6/uL (4.7-6.1); WHITE BLOOD CELLS 17.7 10/3/uL (4.5-10.5)
[2016-09-15 06:54] LABS: MANUAL DIFF NO %
[2016-09-15 07:47] LABS: PLATELET ESTIMATE DEC (ADEQUATE)
[2016-09-15 07:48] LABS: ELLIPTOCYTES 1+ (3-10/OIF) (0-2/OIF); POIKILOCYTOSIS 1+ (5-10/OIF) (0-5/OIF)
[2016-09-16 06:35] LABS: INTERNATIONAL NORMAL RATI 1.4 UNITS (-); PROTIME (NOT ORD) 16.6 SEC (12.0-14.5)
[2016-09-16 06:37] LABS: BASOPHILS 0.1 %; BASOPHILS ABSOLUTE 0.01 10/3/uL (0.0-0.16); EOSINOPHILS 0 %; HEMATOCRIT 32.5 % (40.0-51.0); HEMOGLOBIN 10.5 g/dL (13.6-17.8); IMMATURE GRANULOCYTES 0.2 %; IMMATURE GRANULOCYTES ABSOLUTE 0.02 10/3/uL (0.0-0.11); LYMPHOCYTES 10.8 %; MEAN CORPUS HGB CONC 32.3 g/dL (32.0-36.0); MEAN CORPUSCULAR HEMOGLOB 25.8 pg (26.0-34.0); MEAN CORPUSCULAR VOLUME 79.9 fL (80-100); MEAN PLATELET VOLUME 11.8 fL (9.2-13.0); MONOCYTES 7.8 %; MONOCYTES ABSOLUTE 1.02 10/3/uL (0.21-1.20); NEUTROPHILS 81.1 %; NEUTROPHILS ABSOLUTE 10.57 10/3/uL (2.02-8.40); NUCLEATED RED BLOOD CELLS 0.1 /100WBC (0-0); PLATELET COUNT 96 10/3/uL (150-400); RBC DISTRIBUTION WIDTH 15.6 % (12.0-16.0); RED CELL COUNT 4.07 10/6/uL (4.7-6.1)
[2016-09-16 06:40] LABS: MANUAL DIFF NO %
[2016-09-16 06:46] LABS: CALCIUM, SERUM 9.2 MG/DL (8.5-10.4); CHLORIDE, SERUM 111 MMOL/L (96-112); CO2 (CARBON DIOXIDE) 21 MMOL/L (24-34); CREATININE 2.19 MG/DL (0.70-1.30); GFR AFRICAN AMERICAN 34 ML/MIN (>=60); GFR NON AFRICAN AMERICAN 29 ML/MIN (>=60); GLUCOSE, SERUM 183 MG/DL (60-99); PHOSPHORUS, SERUM 3.1 MG/DL (2.5-4.5); POTASSIUM, SERUM 4.4 MMOL/L (3.5-5.3); SODIUM, SERUM 143 MMOL/L (135-148)
[2016-09-16 06:47] LABS: BUN (BLOOD UREA NITROGEN) 70 MG/DL (6-23)
[2016-09-17 05:45] LABS: INTERNATIONAL NORMAL RATI 2.4 UNITS (-)
[2016-09-17 05:46] LABS: PROTIME (NOT ORD) 25.5 SEC (12.0-14.5)
[2016-09-17 05:51] LABS: ALBUMIN 2.9 G/DL (3.5-5.0); CALCIUM, SERUM 8.8 MG/DL (8.5-10.4); CHLORIDE, SERUM 110 MMOL/L (96-112); CO2 (CARBON DIOXIDE) 24 MMOL/L (24-34); CREATININE 2.24 MG/DL (0.70-1.30); GFR AFRICAN AMERICAN 33 ML/MIN (>=60); GFR NON AFRICAN AMERICAN 28 ML/MIN (>=60); GLUCOSE, SERUM 154 MG/DL (60-99); PHOSPHORUS, SERUM 3.5 MG/DL (2.5-4.5); POTASSIUM, SERUM 4.6 MMOL/L (3.5-5.3); SODIUM, SERUM 143 MMOL/L (135-148)
[2016-09-17 05:53] LABS: HEMOGLOBIN 10.9 g/dL (13.6-17.8); MEAN CORPUS HGB CONC 32.1 g/dL (32.0-36.0); MEAN CORPUSCULAR HEMOGLOB 25.5 pg (26.0-34.0); MEAN CORPUSCULAR VOLUME 79.6 fL (80-100); MEAN PLATELET VOLUME 11.7 fL (9.2-13.0); PLATELET COUNT 127 10/3/uL (150-400); RBC DISTRIBUTION WIDTH 15.5 % (12.0-16.0); RED CELL COUNT 4.27 10/6/uL (4.7-6.1); WHITE BLOOD CELLS 15.8 10/3/uL (4.5-10.5)
[2016-09-17 05:54] LABS: BUN (BLOOD UREA NITROGEN) 76 MG/DL (6-23); MANUAL DIFF YES %
[2016-09-17 06:02] LABS: BAND NEUTROPHILS 2 %; EOSINOPHILS 1 %; EOSINOPHILS ABSOLUTE (CALC) 0.16 10/3/uL (0.0-0.53); LYMPHOCYTES 10 %; LYMPHOCYTES ABSOLUTE (CALC) 1.58 10/3/uL (0.67-4.30); MONOCYTES 9 %; MONOCYTES ABSOLUTE (CALC) 1.42 10/3/uL (0.21-1.20); NEUTROPHILS ABSOLUTE (CALC) 12.64 10/3/uL (2.02-8.40); PLATELET ESTIMATE SLT DEC (ADEQUATE); SEGMENTED NEUTROPHIL (0) 78 %; TOTAL NUCLEATED CELLS 100
[2016-09-17 06:03] LABS: HYPOCHROMIA 1+ (3-10/OIF) (0-2/OIF)
[2016-09-18 06:16] LABS: BASOPHILS 0.1 %; BASOPHILS ABSOLUTE 0.01 10/3/uL (0.0-0.16); EOSINOPHILS 0.8 %; HEMATOCRIT 33.3 % (40.0-51.0); IMMATURE GRANULOCYTES 0.5 %; IMMATURE GRANULOCYTES ABSOLUTE 0.06 10/3/uL (0.0-0.11); LYMPHOCYTES 13.5 %; LYMPHOCYTES ABSOLUTE 1.65 10/3/uL (0.67-4.30); MEAN CORPUSCULAR HEMOGLOB 25.8 pg (26.0-34.0); MEAN PLATELET VOLUME 11.6 fL (9.2-13.0); MONOCYTES 9.9 %; MONOCYTES ABSOLUTE 1.21 10/3/uL (0.21-1.20); NEUTROPHILS 75.2 %; NEUTROPHILS ABSOLUTE 9.19 10/3/uL (2.02-8.40); PLATELET COUNT 148 10/3/uL (150-400); RBC DISTRIBUTION WIDTH 15.5 % (12.0-16.0); RED CELL COUNT 4.27 10/6/uL (4.7-6.1); WHITE BLOOD CELLS 12.2 10/3/uL (4.5-10.5)
[2016-09-18 06:18] LABS: MANUAL DIFF NO %
[2016-09-18 06:23] LABS: PROTIME (NOT ORD) 30.8 SEC (12.0-14.5)
[2016-09-18 06:32] LABS: ALBUMIN 2.6 G/DL (3.5-5.0); CHLORIDE, SERUM 111 MMOL/L (96-112); CO2 (CARBON DIOXIDE) 21 MMOL/L (24-34); CREATININE 1.78 MG/DL (0.70-1.30); GFR AFRICAN AMERICAN 44 ML/MIN (>=60); GFR NON AFRICAN AMERICAN 38 ML/MIN (>=60); PHOSPHORUS, SERUM 3.7 MG/DL (2.5-4.5); POTASSIUM, SERUM 4.4 MMOL/L (3.5-5.3); SODIUM, SERUM 143 MMOL/L (135-148)
[2016-09-18 06:33] LABS: BUN (BLOOD UREA NITROGEN) 72 MG/DL (6-23); GLUCOSE, SERUM 80 MG/DL (60-99)
[2016-09-19 04:03] LABS: INTERNATIONAL NORMAL RATI 2.6 UNITS (-); PROTIME (NOT ORD) 27.2 SEC (12.0-14.5)
[2016-09-20 05:58] LABS: CALCIUM, SERUM 8.5 MG/DL (8.5-10.4); CHLORIDE, SERUM 113 MMOL/L (96-112); CREATININE 1.61 MG/DL (0.70-1.30); GFR AFRICAN AMERICAN 49 ML/MIN (>=60); GFR NON AFRICAN AMERICAN 42 ML/MIN (>=60); GLUCOSE, SERUM 65 MG/DL (60-99); POTASSIUM, SERUM 4.4 MMOL/L (3.5-5.3); SODIUM, SERUM 146 MMOL/L (135-148)
[2016-09-20 05:59] LABS: BUN (BLOOD UREA NITROGEN) 53 MG/DL (6-23); CO2 (CARBON DIOXIDE) 26 MMOL/L (24-34)
[2016-09-20 06:00] LABS: INTERNATIONAL NORMAL RATI 2.5 UNITS (-); PROTIME (NOT ORD) 26.8 SEC (12.0-14.5)
[2016-09-20 06:37] LABS: BASOPHILS 0.1 %; BASOPHILS ABSOLUTE 0.01 10/3/uL (0.0-0.16); EOSINOPHILS 2.1 %; EOSINOPHILS ABSOLUTE 0.32 10/3/uL (0.0-0.53); HEMATOCRIT 35.2 % (40.0-51.0); HEMOGLOBIN 11.5 g/dL (13.6-17.8); IMMATURE GRANULOCYTES 0.8 %; IMMATURE GRANULOCYTES ABSOLUTE 0.12 10/3/uL (0.0-0.11); LYMPHOCYTES 13.3 %; LYMPHOCYTES ABSOLUTE 2.01 10/3/uL (0.67-4.30); MEAN CORPUS HGB CONC 32.7 g/dL (32.0-36.0); MEAN CORPUSCULAR HEMOGLOB 26.1 pg (26.0-34.0); MEAN PLATELET VOLUME 12.2 fL (9.2-13.0); MONOCYTES 6.4 %; MONOCYTES ABSOLUTE 0.96 10/3/uL (0.21-1.20); NEUTROPHILS 77.3 %; NEUTROPHILS ABSOLUTE 11.65 10/3/uL (2.02-8.40); RBC DISTRIBUTION WIDTH 15.6 % (12.0-16.0); WHITE BLOOD CELLS 15.1 10/3/uL (4.5-10.5)
[2016-09-20 06:39] LABS: MANUAL DIFF NO %; PLATELET COUNT 256 10/3/uL (150-400)
[2016-09-21 06:01] LABS: BASOPHILS 0.1 %; BASOPHILS ABSOLUTE 0.02 10/3/uL (0.0-0.16); EOSINOPHILS 2.7 %; EOSINOPHILS ABSOLUTE 0.38 10/3/uL (0.0-0.53); HEMATOCRIT 33.9 % (40.0-51.0); IMMATURE GRANULOCYTES 0.8 %; IMMATURE GRANULOCYTES ABSOLUTE 0.11 10/3/uL (0.0-0.11); INTERNATIONAL NORMAL RATI 2.8 UNITS (-); LYMPHOCYTES 13.7 %; MEAN CORPUS HGB CONC 32.4 g/dL (32.0-36.0); MEAN CORPUSCULAR HEMOGLOB 26.1 pg (26.0-34.0); MEAN CORPUSCULAR VOLUME 80.5 fL (80-100); MEAN PLATELET VOLUME 11.6 fL (9.2-13.0); MONOCYTES 6.8 %; MONOCYTES ABSOLUTE 0.94 10/3/uL (0.21-1.20); NEUTROPHILS 75.9 %; NEUTROPHILS ABSOLUTE 10.55 10/3/uL (2.02-8.40); PLATELET COUNT 272 10/3/uL (150-400); PROTIME (NOT ORD) 29.5 SEC (12.0-14.5); RBC DISTRIBUTION WIDTH 15.8 % (12.0-16.0); RED CELL COUNT 4.21 10/6/uL (4.7-6.1); WHITE BLOOD CELLS 13.9 10/3/uL (4.5-10.5)
[2016-09-21 06:02] LABS: MANUAL DIFF NO %
[2016-09-21 06:12] LABS: BUN (BLOOD UREA NITROGEN) 48 MG/DL (6-23); CALCIUM, SERUM 8.4 MG/DL (8.5-10.4); CHLORIDE, SERUM 114 MMOL/L (96-112); CO2 (CARBON DIOXIDE) 24 MMOL/L (24-34); CREATININE 1.62 MG/DL (0.70-1.30); GFR AFRICAN AMERICAN 49 ML/MIN (>=60); GFR NON AFRICAN AMERICAN 42 ML/MIN (>=60); GLUCOSE, SERUM 174 MG/DL (60-99); POTASSIUM, SERUM 4.6 MMOL/L (3.5-5.3); SODIUM, SERUM 143 MMOL/L (135-148)
[2016-09-22 05:10] LABS: INTERNATIONAL NORMAL RATI 3.1 UNITS (-); PROTIME (NOT ORD) 31.3 SEC (12.0-14.5)
[2016-09-22 05:15] LABS: BASOPHILS 0.3 %; BASOPHILS ABSOLUTE 0.04 10/3/uL (0.0-0.16); EOSINOPHILS 2.6 %; EOSINOPHILS ABSOLUTE 0.41 10/3/uL (0.0-0.53); HEMATOCRIT 34.4 % (40.0-51.0); HEMOGLOBIN 10.9 g/dL (13.6-17.8); IMMATURE GRANULOCYTES 0.6 %; IMMATURE GRANULOCYTES ABSOLUTE 0.09 10/3/uL (0.0-0.11); LYMPHOCYTES 13.8 %; LYMPHOCYTES ABSOLUTE 2.16 10/3/uL (0.67-4.30); MEAN CORPUS HGB CONC 31.7 g/dL (32.0-36.0); MEAN CORPUSCULAR HEMOGLOB 25.7 pg (26.0-34.0); MEAN CORPUSCULAR VOLUME 81.1 fL (80-100); MEAN PLATELET VOLUME 11.2 fL (9.2-13.0); MONOCYTES 6.8 %; MONOCYTES ABSOLUTE 1.07 10/3/uL (0.21-1.20); NEUTROPHILS 75.9 %; NEUTROPHILS ABSOLUTE 11.86 10/3/uL (2.02-8.40); PLATELET COUNT 291 10/3/uL (150-400); RBC DISTRIBUTION WIDTH 15.9 % (12.0-16.0); RED CELL COUNT 4.24 10/6/uL (4.7-6.1); WHITE BLOOD CELLS 15.6 10/3/uL (4.5-10.5)
[2016-09-22 05:19] LABS: BUN (BLOOD UREA NITROGEN) 42 MG/DL (6-23); CALCIUM, SERUM 8.3 MG/DL (8.5-10.4); CHLORIDE, SERUM 113 MMOL/L (96-112); CO2 (CARBON DIOXIDE) 24 MMOL/L (24-34); CREATININE 1.56 MG/DL (0.70-1.30); GFR AFRICAN AMERICAN 51 ML/MIN (>=60); GFR NON AFRICAN AMERICAN 44 ML/MIN (>=60); GLUCOSE, SERUM 143 MG/DL (60-99); POTASSIUM, SERUM 4.7 MMOL/L (3.5-5.3); SODIUM, SERUM 143 MMOL/L (135-148)
[2016-09-22 05:21] LABS: MANUAL DIFF NO %
[2016-09-23 05:34] LABS: INTERNATIONAL NORMAL RATI 2.7 UNITS (-); PROTIME (NOT ORD) 28.4 SEC (12.0-14.5)
[2016-12-08] MEDS ORDERED: SENTAB PO (15:01)
[2016-12-08] MEDS ORDERED: ZINC220C (15:01)
[2016-12-08] MEDS ORDERED: DSS PO (15:01)
[2016-12-21] MEDS ORDERED: *UNABLE1 (04:01)
[2016-12-21] MEDS ORDERED: L20 PO (11:39)
[2016-12-21] MEDS ORDERED: ZOL50 PO (11:40)
[2016-12-21] MEDS ORDERED: SENTAB PO (11:40)
[2016-12-21] MEDS ORDERED: GLUCPH PO (11:40)
[2016-12-21] MEDS ORDERED: APRES10B PO (11:40)
[2016-12-21] MEDS ORDERED: IMDUR30 PO (11:40)
[2016-12-21] MEDS ORDERED: CORDARONE PO (11:41)
[2016-12-21] MEDS ORDERED: ASAB PO (11:41)
[2016-12-21] MEDS ORDERED: ELIQUIS 5 MG TAB5 MG PO (11:41)
[2016-12-21] MEDS ORDERED: COREG6 PO (11:42)
[2016-12-21] MEDS ORDERED: LIPITOR20 PO (11:42)
[2016-12-21] MEDS ORDERED: PEP20 PO (11:43)
== END 2016-09-23 15:18 | disposition home or self-care (01) | DRG 228 ==
LOC: CORLMH 08:01 → SSU1 08:06 → 5NO 09-10 12:46 → SDC/OF 09-12 11:21 → CVICU 09-12 16:43 → 5NO 09-14 15:15
PROVIDERS: Internal Medicine Cardiovascular Disease; Internal Medicine Nephrology; Nurse Practitioner; Nurse Practitioner Family; Thoracic Surgery (Cardiothoracic Vascular Surgery)
PROC: 4A023N7 Measurement of Cardiac Sampling and Pressure, Left Heart, Percutaneous Approach (ICD-10-PCS; principal; 2016-09-09)
PROC: 02580ZZ Destruction of Conduction Mechanism, Open Approach (ICD-10-PCS; 2016-09-09)
PROC: B2111ZZ Fluoroscopy of Multiple Coronary Arteries using Low Osmolar Contrast (ICD-10-PCS; 2016-09-09)
PROC: 021109W Bypass Coronary Artery, Two Arteries from Aorta with Autologous Venous Tissue, Open Approach (ICD-10-PCS; 2016-09-09)
PROC: 0210099 Bypass Coronary Artery, One Artery from Left Internal Mammary with Autologous Venous Tissue, Open Approach (ICD-10-PCS; 2016-09-09)
PROC: B2151ZZ Fluoroscopy of Left Heart using Low Osmolar Contrast (ICD-10-PCS; 2016-09-09)
PROC: 0PH000Z Insertion of Rigid Plate Internal Fixation Device into Sternum, Open Approach (ICD-10-PCS; 2016-09-12)
PROC: 06BQ4ZZ Excision of Left Saphenous Vein, Percutaneous Endoscopic Approach (ICD-10-PCS; 2016-09-12)
PROC: 5A1221Z Performance of Cardiac Output, Continuous (ICD-10-PCS; 2016-09-12)
PROC: B246ZZ4 Ultrasonography of Right and Left Heart, Transesophageal (ICD-10-PCS; 2016-09-12)
PROC: 02L70CK Occlusion of Left Atrial Appendage with Extraluminal Device, Open Approach (ICD-10-PCS; 2016-09-12)
PROC: 02100Z8 Bypass Coronary Artery, One Artery from Right Internal Mammary, Open Approach (ICD-10-PCS; 2016-09-12 12:00)
DX: I21.4 Non-ST elevation (NSTEMI) myocardial infarction (principal); G92 Toxic encephalopathy; N17.9 Acute kidney failure, unspecified; E11.22 Type 2 diabetes mellitus with diabetic chronic kidney disease; I48.2 Chronic atrial fibrillation; I13.0 Hypertensive heart and chronic kidney disease with heart failure and stage 1 through stage 4 chronic kidney disease, or unspecified chronic kidney disease; I50.22 Chronic systolic (congestive) heart failure; R13.10 Dysphagia, unspecified; I25.10 Atherosclerotic heart disease of native coronary artery without angina pectoris; E78.5 Hyperlipidemia, unspecified; Z86.73 Personal history of transient ischemic attack (TIA), and cerebral infarction without residual deficits; I25.5 Ischemic cardiomyopathy; N18.3 Chronic kidney disease, stage 3 (moderate); I34.0 Nonrheumatic mitral (valve) insufficiency; Z79.84 Long term (current) use of oral hypoglycemic drugs; D63.1 Anemia in chronic kidney disease
CPT/HCPCS: 36415; 71010; 74230; 80048; 80061; 80069; 81001; 82330; 82533; 82570; 82803; 82805; 82947; 82962; 83036; 83735; 84132; 84295; 84300; 85014; 85025; 85347; 85610; 85730; 86850; 86900; 86901; 86920; 87641; 92610-GN; 92611-GN; 93005; 93312; 93320; 93325; 93458; 93880; 94002; 94640; 94660; 94770; 97110-GO; 97110-GP; 97116-GP; 97163-GP; 97166-GO; 97530-GP; 97535-GO; 99152; A9270-GY; C1713; C1751; C1769; C1887; C1894; C8924; G0365; G8987-CK-GO; G8988-CJ-GO; J0690; J1644; J2150; J2250; J2260; J2370; J2440; J2720; J2930; J3010; J3370; J3475; J3480; P9045; P9047; Q9957; Q9967

== ENCOUNTER 2016-10-19 13:26 | Inpatient (IN) | payer OTHER, MEDICARE ==
--- NOTE | ~2016-10-19 | HP ---
History And Physical [id number] [place]. [address] NAME: TAMMY PALM : 45 STATUS : ADM IN PAT#: [id number] AGE: 71 ADM/REG DATE : 10/19/16 MR#: [id number] REPORT SERV DATE: 10/20/16 DICTATED BY: NIMA MCGILL DATE: 10/19/16 REPORT STATUS : Draft TRANSCRIBED BY: IRMA DATE: 10/19/16 DATE OF ADMISSION: 10/19/2016 CHIEF COMPLAINT: Generalized weakness. HISTORY OF PRESENT ILLNESS: This is a 71-year-old male with a past medical history of coronary artery disease and systolic congestive heart failure/ischemic cardiomyopathy with ejection fraction of 25% with recent quadruple bypass with mitral valve repair by Dr. Rai Griffin in August 2016 for which the patient at that time was [facility]. Also was found to have bilateral lower extremity DVTs and treated on with warfarin. The patient was released to home from [facility] approximately 1-1/2 weeks ago. However, while at home, the patient was doing okay, but approximately one to two days ago developed some generalized weakness to the point where the patient requires assistance from rising from sitting to standing which is new for him. He denies any new medications other than the fact that he was recently treated with antibiotic which is unknown while at [facility] for pneumonia. The patient does have a productive cough with clear sputum. No subjective fever or chills. No shortness of breath, but does have some mild dyspnea on exertion. He denies any orthopnea. No chest pain. No abdominal pain. No nausea or vomiting. No diarrhea. He does have a walker at home, but however, over the past couple of days, the family has required to use a wheelchair for mobility for the patient which is also new. Therefore, he presented to the ER, he was seen by ER physician, Dr. Aguirre, who ordered a chest x-ray which revealed some bilateral lower extremity infiltrates as well as lab work with some findings of some hyperkalemia with a potassium of 5.9, for which only IV fluids were given in the ER and the hospitalist were called to admit the patient into the hospital. According to the family, the patient was so weak that he slipped from a chair and was lying on the floor for several hours, but did not have any head trauma and decided to bring the patient into the ER. PAST MEDICAL HISTORY: Ischemic cardiomyopathy, ejection fraction of 25%, status post CABG; mitral valve repair; atrial fibrillation; hypertension; hyperlipidemia; bilateral lower extremity DVTs in August 2016; CVA; melanoma, status post extraction; type 2 diabetes; CKD. PAST SURGICAL HISTORY: Skin extraction as above. FAMILY HISTORY: Hypertension, hyperlipidemia, type 2 diabetes. SOCIAL HISTORY: Approximately 10-year pack history, quit in 1982. No alcohol. No illicit drugs. Lives at home with his family includes his and grandson. His daughter is currently at the bedside assisting with the patient's history. At baseline, uses a walker, but not recently. ALLERGIES: NO KNOWN ALLERGIES. HOME MEDICATIONS: Includes warfarin 0.5 mg p.o. q. evening, amiodarone 200 mg p.o. b.i.d., aspirin 81 mg p.o. daily, Coreg 6.25 mg p.o. b.i.d., Pepcid 20 mg p.o. b.i.d. p.r.n.; hydralazine 10 mg p.o. t.i.d., Imdur 30 mg p.o. q.a.m., metformin 500 mg p.o. q. evening, History And Physical [address] [address] NAME: TAMMY PALM : 45 STATUS : ADM IN [facility]#: [id number] AGE: 71 ADM/REG DATE : 10/19/16 MR#: [id number] REPORT SERV DATE: 10/20/16 DICTATED BY: NIMA MCGILL DATE: 10/19/16 REPORT STATUS : Draft TRANSCRIBED BY: MODRonny DATE: 10/19/16 Zoloft 50 mg p.o. q.h.s. PHYSICAL EXAMINATION: VITAL SIGNS: Temp is 97.8, blood pressure 167/84 with a pulse of 65, respiration of 16, and saturating 97% on room air. GENERAL: The patient is alert and oriented x3, currently in no distress. Well nourished. HEENT: Pupils equal, round, and reactive to light. Extraocular muscles are intact with anicteric sclerae. CHEST: LifeVest currently intact. CARDIOVASCULAR: S1, S2. No rubs or gallops. With some positive mild JVD. RESPIRATORY: With a positive wheeze, more so on the anterior aspect of the chest wall, more on the left than on the right. However, no tachypnea. ABDOMEN: Positive bowel sounds. Soft, nontender. No rebound. No fluid wave. No distention. EXTREMITIES: Warm. No appreciated edema. NEURO: Cranial nerves II through XII are grossly intact. Moves all four extremities. No neuro focal deficits. IMAGING: Chest x-ray with some bilateral infiltrate/haziness. EKG currently pending. LABORATORY DATA: Sodium 137, potassium 5.9, chloride of 105, bicarb of 26, BUN of 20 with a creatinine of 1.39 with a glucose of 120. Albumin of 3.4, T bilirubin is 0.7, alkaline phosphatase 173, ALT of 32, AST 42, myoglobin of 109. White count of 10.9 with a hemoglobin of 12.9, platelet count of 144. INR of 1.7. UA not performed in the ER. ASSESSMENT AND PLAN: 1. Bilateral infiltrates, pneumonia versus fluid. 2. Hyperkalemia, acute. 3. Generalized weakness with debility. 4. Ischemic cardiomyopathy with ejection fraction of 25%, status post recent coronary artery bypass graft. 5. Recent bilateral deep venous thromboses. 6. Type 2 diabetes. 7. History of hypertension. PLAN: We will admit the patient to the cardiac telemetry. Currently, no signs of acute CVA. However, we will consult Physical Therapy and placed on fall precautions. Also, we will check procalcitonin. The patient's white cell count is normal and is afebrile, hard to decipher if this truly is pneumonia versus fluid, he does have a mild elevation in his BNP and he is currently not on the diuretic at home. Therefore, we will slowly diurese. Also, we will correct the patient's potassium. Also, we would check urinalysis and EKG. Follow up with pending labs. Also, we will correct the patient's subtherapeutic INR for recent bilateral lower extremity DVTs and continue with the patient's LifeVest which is currently on the patient. Also, we will notify Dr. Villalpando of the patient's readmission. History And Physical [address] [address] NAME: TAMMY PALM : 45 STATUS : ADM IN PAT#: [id number] AGE: 71 ADM/REG DATE : 10/19/16 MR#: [id number] REPORT SERV DATE: 10/20/16 DICTATED BY: NIMA MCGILL DATE: 10/19/16 REPORT STATUS : Draft TRANSCRIBED BY: MODL DATE: 10/19/16 [facility]/IRMA Nima Mcgill M.D. / [id number] CC: Jas Kent M.D. William Warren, M.D.
--- NOTE | ~2016-10-19 | DS ---
Discharge Summary [facility] [address] [facility] [place]. [address] NAME: TAMMY PALM : 45 STATUS : DIS IN PAT#: [id number] AGE: 71 ADM/REG DATE : 10/19/16 MR#: [id number] REPORT SERV DATE: 10/28/16 DICTATED BY: CHRIS ARMANDO DATE: 10/24/16 REPORT STATUS : Draft TRANSCRIBED BY: MODL DATE: 10/24/16 ADMISSION DATE: 10/19/2016 DISCHARGE DATE: 10/25/2016 PRINCIPAL DIAGNOSES: Acute on chronic congestive heart failure with pulmonary edema, has generalized weakness, history of deep venous thrombosis, hyperkalemia, hypertension, type 2 diabetes, chronic kidney disease. HISTORY OF PRESENT ILLNESS: Please see Dr. Klein's dictation 10/19/2016. HOSPITAL COURSE: Admitted with weakness, shortness of breath, pulmonary edema. The patient was diuresed. Seen by Cardiology. He got gradually better. Still too weak to walk and referral was made to group home facility. Actually was ready by 10/24/2016; however, was felt that he would not actually able to go logistically until 10/25/2016, but he would go there on Lasix, Lovenox until Coumadin was satisfactory. Imdur, aspirin, Coumadin, Apresoline which would replace the Imdur that he could not take due to renal insufficiency. Carvedilol, amiodarone, Zoloft. Followup Dr. Lenin Aguilar. Greater than 30 minute were spent in the care of this patient in discharge planning on discharge day. DICTATED BY: Jas Kent/IRMA Chris Armando M.D. / [id number] CC: Jas Mazariegos M.D.
--- NOTE | ~2016-10-19 | DS ---
Discharge Summary [facility] [address] [place]. [address] NAME: TAMMY PALM : 45 STATUS : ADM IN PAT#: [id number] AGE: 71 ADM/REG DATE : 10/19/16 MR#: [id number] REPORT SERV DATE: 10/26/16 DICTATED BY: JAZMIN AGUILAR DATE: 10/25/16 REPORT STATUS : Draft TRANSCRIBED BY: MODL DATE: 10/25/16 ADMISSION DATE: 10/19/2016 DISCHARGE DATE: ADDENDUM: Addendum to discharge summary. Original discharge summary dictated by Dr. Edwin Mascorro on 10/24/2016. DISCHARGE DIAGNOSES: 1. Acute on chronic systolic congestive heart failure with ejection fraction of 25%. 2. Ischemic cardiomyopathy. 3. Coronary artery disease, post coronary artery bypass graft x4, August 2016. 4. Hypertension. 5. Hyperlipidemia. 6. Diabetes. 7. Chronic atrial fibrillation with left atrial appendage clip. 8. Previous stroke. 9. Chronic kidney disease 3. 10.Bilateral deep venous thrombosis, August 2016. 11.Chronic anemia. 12.Venous insufficiency. 13.History of melanoma. 14.Debility. HOSPITAL COURSE: Please see discharge summary dictated on 10/24/[address] Mascorro. The patient was to have been transferred to [facility] which did not happen until today. DISCHARGE MEDICATIONS: His medications at discharge will be aspirin 81 mg daily, amiodarone 200 mg daily, Coreg 6.25 mg twice daily, Lasix 20 mg daily, NovoLog medium dose level 2 correction scale insulin before meals, Imdur 30 mg daily, Theragran multivitamin daily, Zoloft 50 mg daily, Apresoline 10 mg every eight hours, Pepcid 20 mg twice daily as needed, Eliquis 5 mg twice daily starting tonight (per Dr. Villalpando's order today) and no Coumadin. He is to take Lipitor 20 mg daily, albuterol nebs every four hours while awake as needed or DuoNebs every six hours as needed. A BMP and CBC are to be done on 10/27/2016, called to his provider at [facility]. LABORATORY DATA: Discharge BMP today, sodium 135, potassium 3.9, chloride 99, CO2 of 28, BUN 23, creatinine 1.56, glucose 172, calcium 9.2. Discharge time today, greater than 30 minutes. DICTATED BY: Jazmin Aguilar M.D. DD/IRMA Discharge Summary [address] [place]. [address] NAME: TAMMY PALM : 45 STATUS : ADM IN PAT#: [id number] AGE: 71 ADM/REG DATE : 10/19/16 MR#: [id number] REPORT SERV DATE: 10/26/16 DICTATED BY: JAZMIN AGUILAR DATE: 10/25/16 REPORT STATUS : Draft TRANSCRIBED BY: IRMA DATE: 10/25/16 Jazmin Aguilar M.D. / [id number] CC: Jas Mazariegos M.D.
--- NOTE | ~2016-10-19 | DS ---
Discharge Summary [facility] [address] [place]. [address] NAME: TAMMY PALM : 45 STATUS : DIS IN PAT#: [id number] AGE: 71 ADM/REG DATE : 10/19/16 MR#: [id number] REPORT SERV DATE: 10/27/16 DICTATED BY: JAZMIN AGUILAR DATE: 10/26/16 REPORT STATUS : Draft TRANSCRIBED BY: MODL DATE: 10/26/16 ADMISSION DATE: 10/19/2016 DISCHARGE DATE: 10/26/2016 ADDENDUM: Addendum to discharge summary #2. Original discharge summary dictated by Dr. Edwin Mascorro, on 10/24/2016. First addendum to discharge summary dictated by the undersigned on 10/25/2016. DISCHARGE DIAGNOSES: 1. Acute on chronic systolic congestive heart failure with ejection fraction of 25%. 2. Ischemic cardiomyopathy. 3. Coronary artery disease, post coronary artery bypass graft x4, 08/2016. 4. Hypertension. 5. Hyperlipidemia. 6. Diabetes. 7. Chronic atrial fibrillation with left atrial appendage clip, 08/2016. 8. Previous stroke. 9. Chronic kidney disease, stage III. 10.Bilateral deep venous thrombosis, 08/2016. 11.Chronic anemia. 12.Venous insufficiency. 13.History of melanoma. 14.Debility. HOSPITAL COURSE: Please see discharge summary dictated on 10/24/[address] Mascorro and addendum to discharge summary #1 dictated by the undersigned on 10/25/2016. Addendum #2: The patient was discharged to [facility]. On arrival there, neither the patient nor his were satisfied with the facility. After discussions by the undersigned with case management and house administration, the patient was brought back to his room 6125 and his discharge treatment was continued until different transition arrangements could be made on 10/26/2016. On 10/26/2016, the patient and his met with case management. The patient was seen by physical therapy. Physical therapy actually thought that he could manage at home with some additional support including outpatient physical therapy. He felt better today. He wanted to go home. His concurred. He was asymptomatic. His exam was unchanged. There were no new laboratory studies. At this time, it was felt he had achieved a level of improvement and stability where he could be safely discharged home. He will have outpatient followup with Dr. Villalpando and at the [facility], Dr. Raymundo. Arrangements will be made for outpatient physical therapy. Discharge Summary [address] [address] NAME: TAMMY PALM : 45 STATUS : DIS IN PAT#: [id number] AGE: 71 ADM/REG DATE : 10/19/16 MR#: [id number] REPORT SERV DATE: 10/27/16 DICTATED BY: JAZMIN AGUILAR DATE: 10/26/16 REPORT STATUS : Draft TRANSCRIBED BY: IRMA DATE: 10/26/16 He has a rolling walker, wheelchair, and bedside commode at home. He was asked to follow with no added sodium diet and to limit his fluid intake to 1500 mL in 24 hours. Arrangements were made for him to have a CBC and BMP in 48 hours at the [facility] with results called to his physician for medication adjustment if needed. DISCHARGE MEDICATIONS: Aspirin 81 mg daily; amiodarone 200 mg daily; Coreg 6.25 mg twice daily; Lasix 20 mg daily, taking an extra 20 mg daily for weight gain of 2 pounds; Imdur 30 mg daily; Zoloft 50 mg daily; Apresoline 10 mg every 8 hours; Pepcid 20 mg twice daily as needed; Eliquis 5 mg twice daily; Lipitor 20 mg daily; metformin 500 mg daily. Discharge time, greater than 30 minutes. DICTATED BY: Jazmin Aguilar M.D. DD/IRMA Jazmin Aguilar M.D. / [id number] CC: Jas Mazariegos M.D. William Warren, M.D.
--- NOTE | ~2016-10-19 | CN ---
Consultation Report [id number] [facility] [place]. [address] NAME: TAMMY PALM : 45 STATUS : ADM IN PAT#: [id number] AGE: 71 ADM/REG DATE : 10/19/16 MR#: [id number] REPORT SERV DATE: 10/20/16 DICTATED BY: RICCI COOL DATE: 10/20/16 REPORT STATUS : Draft TRANSCRIBED BY: MODL DATE: 10/20/16 CARDIOVASCULAR CONSULTATION DATE OF CONSULTATION: 10/20/2016 INDICATION: Dyspnea and weakness. HISTORY OF PRESENT ILLNESS: Mr. Palm is a 71-year-old man, with a complicated recent medical history. He had a stroke last year managed at [facility]. He recently underwent complicated coronary artery bypass grafting with mitral valve repair by Dr. Griffin. Pre and postop EF approximately 25%. He was discharged to [facility] on a LifeVest. He is subsequently discovered to have a DVT and was placed on Coumadin. He has a history of chronic systolic congestive heart failure. He was discharged from [facility] to home, but became increasingly weak, developed a cough, and was admitted to the emergency room with presumptive diagnosis of pneumonia based on chest x-ray. His white count is mildly elevated, but his procalcitonin is not elevated. He has not been febrile. PAST MEDICAL HISTORY: 1. Coronary artery disease, status post coronary artery bypass grafting. 2. Mitral regurgitation, status post mitral valve repair. 3. History of stroke. 4. Hypertension. 5. Hypercholesterolemia. 6. Cardiomyopathy/chronic systolic congestive heart failure with EF of 25%. 7. History of DVTs. 8. Type 2 diabetes. 9. Chronic kidney disease. SOCIAL HISTORY: He does not smoke or drink alcohol. FAMILY HISTORY: There is no family history of early coronary artery disease. REVIEW OF SYSTEMS: A complete review of systems was obtained, which is negative in detail except as mentioned above in the HPI. ALLERGIES: MUCINEX CAUSING NAUSEA AND VOMITING. MEDICATIONS: Amiodarone 200 mg twice a day, aspirin 81 mg daily, Coreg 6.25 mg twice a day, Pepcid, hydralazine 10 mg three times a day, Imdur 30 mg daily, Glucophage, Zoloft, and Coumadin. Consultation Report [id number] [facility] [place]. [address] NAME: TAMMY PALM DOB: [birth year] STATUS : ADM IN PAT#: [id number] AGE: 71 ADM/REG DATE : 10/19/16 MR#: [id number] REPORT SERV DATE: 10/20/16 DICTATED BY: RICCI COOL DATE: 10/20/16 REPORT STATUS : Draft TRANSCRIBED BY: IRMA DATE: 10/20/16 PHYSICAL EXAMINATION: VITAL SIGNS: Blood pressure 130/70, heart rate of 60, and respiratory rate of 14. GENERAL: Comfortable in no acute distress. HEENT: Anicteric. No xanthelasma. Lips without cyanosis. NECK: No JVD. Carotids 2+ and symmetric. No carotid bruits. LUNGS: CTA bilaterally. No wheezes or rhonchi. No accessory muscle use. COR: Irregularly irregular. Normal S1 and S2. ABD: Soft, nontender, nondistended. Normal bowel sounds. No abdominal bruits. EXT: No clubbing, cyanosis or edema 2+ and symmetric distal pulses. SKIN: Warm. Dry. No venous stasis changes. MS: No kyphosis. NEURO/PSYCH: Oriented x3. No anxiety or depression. LABORATORY STUDIES: INR 2.1, white count of 10.9, procalcitonin of 0.06 which is low, and creatinine of 1.36. EK-lead EKG shows atrial flutter, atypical heart rate 61 beats per minute. T-wave inversions are noted in the lateral precordial leads. IMPRESSION: The patient is a 71-year-old man, with multiple recent complicated medical issues including a stroke less than a year ago, and recent coronary artery bypass grafting with mitral valve repair. He has chronic systolic congestive heart failure. He has a LifeVest for primary prevention of ventricular arrhythmias. He has a history of deep venous thrombosis and is on Coumadin. He is in atrial fibrillation/flutter though rate controlled. We will continue evaluation for possible pneumonia, although, I am skeptical given his low procalcitonin and no fevers. He does have some general failure to thrive. We may consider further management of his atrial arrhythmias. DAVID/IRMA Ricci Cool M.D. / [id number] CC: Jas Kent M.D.
[2016-10-19 16:25] LABS: INTERNATIONAL NORMAL RATI 1.7 UNITS (-); PARTIAL THROMBO TIME 25.4 SEC (22.5-37.2)
[2016-10-19 16:26] LABS: BASOPHILS 0.3 %; BASOPHILS ABSOLUTE 0.03 10/3/uL (0.0-0.16); EOSINOPHILS 1.8 %; ER CBC TAT 0 Hrs 16 Mins; HEMOGLOBIN 12.9 g/dL (13.6-17.8); IMMATURE GRANULOCYTES 0.9 %; LYMPHOCYTES 15.7 %; LYMPHOCYTES ABSOLUTE 1.72 10/3/uL (0.67-4.30); MEAN CORPUS HGB CONC 31.7 g/dL (32.0-36.0); MEAN CORPUSCULAR HEMOGLOB 25.3 pg (26.0-34.0); MONOCYTES 8.2 %; NEUTROPHILS 73.1 %; NEUTROPHILS ABSOLUTE 7.99 10/3/uL (2.02-8.40); PLATELET COUNT 144 10/3/uL (150-400); PROTIME (NOT ORD) 19.7 SEC (12.0-14.5); RBC DISTRIBUTION WIDTH 17.3 % (12.0-16.0); RED CELL COUNT 5.09 10/6/uL (4.7-6.1); WHITE BLOOD CELLS 10.9 10/3/uL (4.5-10.5)
[2016-10-19 16:27] LABS: HEMATOCRIT 40.7 % (40.0-51.0); MANUAL DIFF NO %
[2016-10-19 16:38] LABS: ALBUMIN 3.4 G/DL (3.5-5.0); CALCIUM, SERUM 9.2 MG/DL (8.5-10.4); CHEST PAIN PROFILE TAT 0 Hrs 28 Mins; CHLORIDE, SERUM 105 MMOL/L (96-112); CO2 (CARBON DIOXIDE) 26 MMOL/L (24-34); CREATININE 1.39 MG/DL (0.70-1.30); GFR AFRICAN AMERICAN 59 ML/MIN (>=60); GFR NON AFRICAN AMERICAN 51 ML/MIN (>=60); GLUCOSE, SERUM 120 MG/DL (60-99); MYOGLOBIN, SERUM 109 NG/ML (0-85); SGPT(ALT) 32 U/L (5-65); SODIUM, SERUM 137 MMOL/L (135-148); TOTAL BILIRUBIN 0.7 MG/DL (0-1.2); TOTAL PROTEIN 7.6 G/DL (6.0-8.5); TROPONIN I 0.04 NG/ML (<0.05)
[2016-10-19 16:40] LABS: POTASSIUM, SERUM 5.9 MMOL/L (3.5-5.3)
[2016-10-19 16:41] LABS: ALKALINE PHOSPHATASE 173 U/L (45-117); BUN (BLOOD UREA NITROGEN) 20 MG/DL (6-23); DIRECT BILIRUBIN < 0.1 MG/DL (0.0-0.4); INDIRECT BILIRUBIN(NOT ORDER) 0.6 MG/DL (0.1-0.9); SGOT(AST) 42 U/L (5-40)
[2016-10-19] MEDS ORDERED: APRES10B PO (16:48)
[2016-10-19] MEDS ORDERED: PEP20 PO (16:48)
[2016-10-19] MEDS ORDERED: CORDARONE PO (16:48)
[2016-10-19] MEDS ORDERED: GLUCPH PO (16:49)
[2016-10-19] MEDS ORDERED: IMDUR30 PO (16:49)
[2016-10-19] MEDS ORDERED: ASAB PO (16:50)
[2016-10-19] MEDS ORDERED: C1 PO (16:50)
[2016-10-19] MEDS ORDERED: COREG6 PO (16:52)
[2016-10-19] MEDS ORDERED: ZOL50 PO (16:52)
[2016-10-19 17:06] LABS: ANISOCYTOSIS 1+ (5-10/OIF) (0-5/OIF); OVALOCYTES 1+ (3-10/OIF) (0-2/OIF); PLATELET ESTIMATE ADQ (ADEQUATE)
[2016-10-19 18:44] LABS: ASCORBIC ACID (UR NOT ORDER) NEG (NEG); BILIRUBIN, URINE NEGATIVE (NEG); ER URINALYSIS TAT 0 Hrs 25 Mins; KETONE, URINE TRACE MG/DL (NEG); LEUKOCYTE ESTERASE(NOT OR NEG (NEG); NITRITE (URINE) NEG (NEG); WBC (NOT ORDERED) (RFLEX) < 1 (0-5)
[2016-10-19 23:20] LABS: CALCIUM, SERUM 9.5 MG/DL (8.5-10.4); CHLORIDE, SERUM 102 MMOL/L (96-112); CO2 (CARBON DIOXIDE) 28 MMOL/L (24-34); CREATININE 1.35 MG/DL (0.70-1.30); GFR AFRICAN AMERICAN 61 ML/MIN (>=60); GFR NON AFRICAN AMERICAN 52 ML/MIN (>=60); GLUCOSE, SERUM 115 MG/DL (60-99); SODIUM, SERUM 139 MMOL/L (135-148)
[2016-10-19 23:27] LABS: BUN (BLOOD UREA NITROGEN) 16 MG/DL (6-23); POTASSIUM, SERUM 3.9 MMOL/L (3.5-5.3)
[2016-10-20 01:01] LABS: PROCALCITONIN 0.06 ng/mL (<0.5)
[2016-10-20 05:47] LABS: BASOPHILS 0.3 %; BASOPHILS ABSOLUTE 0.03 10/3/uL (0.0-0.16); EOSINOPHILS 2.8 %; EOSINOPHILS ABSOLUTE 0.26 10/3/uL (0.0-0.53); HEMOGLOBIN 11.5 g/dL (13.6-17.8); IMMATURE GRANULOCYTES 0.3 %; IMMATURE GRANULOCYTES ABSOLUTE 0.03 10/3/uL (0.0-0.11); LYMPHOCYTES 19.1 %; LYMPHOCYTES ABSOLUTE 1.75 10/3/uL (0.67-4.30); MEAN CORPUS HGB CONC 31.4 g/dL (32.0-36.0); MEAN CORPUSCULAR HEMOGLOB 25.2 pg (26.0-34.0); MEAN CORPUSCULAR VOLUME 80.3 fL (80-100); MONOCYTES 9.5 %; MONOCYTES ABSOLUTE 0.87 10/3/uL (0.21-1.20); NEUTROPHILS ABSOLUTE 6.21 10/3/uL (2.02-8.40); RBC DISTRIBUTION WIDTH 17.1 % (12.0-16.0); RED CELL COUNT 4.56 10/6/uL (4.7-6.1); WHITE BLOOD CELLS 9.2 10/3/uL (4.5-10.5)
[2016-10-20 05:52] LABS: HEMATOCRIT 36.6 % (40.0-51.0); MANUAL DIFF NO %; PLATELET COUNT 190 10/3/uL (150-400)
[2016-10-20 05:54] LABS: INTERNATIONAL NORMAL RATI 2.1 UNITS (-)
[2016-10-20 05:57] LABS: PROTIME (NOT ORD) 23.1 SEC (12.0-14.5)
[2016-10-20 06:10] LABS: BUN (BLOOD UREA NITROGEN) 17 MG/DL (6-23); CALCIUM, SERUM 8.8 MG/DL (8.5-10.4); CHLORIDE, SERUM 102 MMOL/L (96-112); CO2 (CARBON DIOXIDE) 30 MMOL/L (24-34); CREATININE 1.36 MG/DL (0.70-1.30); GFR AFRICAN AMERICAN 60 ML/MIN (>=60); GFR NON AFRICAN AMERICAN 52 ML/MIN (>=60); POTASSIUM, SERUM 3.7 MMOL/L (3.5-5.3); SODIUM, SERUM 139 MMOL/L (135-148)
[2016-10-20 06:11] LABS: GLUCOSE, SERUM 143 MG/DL (60-99)
[2016-10-20 06:18] LABS: ANISOCYTOSIS 1+ (5-10/OIF) (0-5/OIF); HYPOCHROMIA 1+ (3-10/OIF) (0-2/OIF); MICROCYTES 1+ (5-10/OIF) (0-5/OIF); PLATELET ESTIMATE ADQ (ADEQUATE)
[2016-10-21 04:37] LABS: BUN (BLOOD UREA NITROGEN) 19 MG/DL (6-23); CALCIUM, SERUM 8.5 MG/DL (8.5-10.4); CHLORIDE, SERUM 100 MMOL/L (96-112); CO2 (CARBON DIOXIDE) 30 MMOL/L (24-34); CREATININE 1.62 MG/DL (0.70-1.30); GFR AFRICAN AMERICAN 49 ML/MIN (>=60); GFR NON AFRICAN AMERICAN 42 ML/MIN (>=60); PROTIME (NOT ORD) 22.2 SEC (12.0-14.5); SODIUM, SERUM 137 MMOL/L (135-148)
[2016-10-21 04:38] LABS: GLUCOSE, SERUM 111 MG/DL (60-99); POTASSIUM, SERUM 3.8 MMOL/L (3.5-5.3)
[2016-10-22 05:19] LABS: INTERNATIONAL NORMAL RATI 1.6 UNITS (-)
[2016-10-22 05:20] LABS: PROTIME (NOT ORD) 18.5 SEC (12.0-14.5)
[2016-10-23 06:34] LABS: INTERNATIONAL NORMAL RATI 1.6 UNITS (-); PROTIME (NOT ORD) 19.3 SEC (12.0-14.5)
[2016-10-23 06:37] LABS: CALCIUM, SERUM 8.8 MG/DL (8.5-10.4); CHLORIDE, SERUM 103 MMOL/L (96-112); CO2 (CARBON DIOXIDE) 31 MMOL/L (24-34); CREATININE 1.66 MG/DL (0.70-1.30); GFR AFRICAN AMERICAN 47 ML/MIN (>=60); GFR NON AFRICAN AMERICAN 41 ML/MIN (>=60); GLUCOSE, SERUM 122 MG/DL (60-99); SODIUM, SERUM 141 MMOL/L (135-148)
[2016-10-23 06:38] LABS: BUN (BLOOD UREA NITROGEN) 26 MG/DL (6-23)
[2016-10-24 06:38] LABS: BASOPHILS 0.2 %; BASOPHILS ABSOLUTE 0.02 10/3/uL (0.0-0.16); EOSINOPHILS 4.5 %; HEMATOCRIT 33.9 % (40.0-51.0); HEMOGLOBIN 10.8 g/dL (13.6-17.8); IMMATURE GRANULOCYTES 0.5 %; IMMATURE GRANULOCYTES ABSOLUTE 0.04 10/3/uL (0.0-0.11); LYMPHOCYTES ABSOLUTE 1.06 10/3/uL (0.67-4.30); MEAN CORPUS HGB CONC 31.9 g/dL (32.0-36.0); MEAN CORPUSCULAR HEMOGLOB 25.5 pg (26.0-34.0); MEAN PLATELET VOLUME 11.1 fL (9.2-13.0); MONOCYTES 7.2 %; MONOCYTES ABSOLUTE 0.64 10/3/uL (0.21-1.20); NEUTROPHILS 75.6 %; NEUTROPHILS ABSOLUTE 6.68 10/3/uL (2.02-8.40); PLATELET COUNT 150 10/3/uL (150-400); RBC DISTRIBUTION WIDTH 17.1 % (12.0-16.0); RED CELL COUNT 4.24 10/6/uL (4.7-6.1); WHITE BLOOD CELLS 8.8 10/3/uL (4.5-10.5)
[2016-10-24 06:40] LABS: MANUAL DIFF NO %
[2016-10-24 06:43] LABS: INTERNATIONAL NORMAL RATI 1.8 UNITS (-); PROTIME (NOT ORD) 20.9 SEC (12.0-14.5)
[2016-10-24 06:52] LABS: BUN (BLOOD UREA NITROGEN) 24 MG/DL (6-23); CALCIUM, SERUM 8.8 MG/DL (8.5-10.4); CHLORIDE, SERUM 102 MMOL/L (96-112); CO2 (CARBON DIOXIDE) 31 MMOL/L (24-34); CREATININE 1.54 MG/DL (0.70-1.30); GFR AFRICAN AMERICAN 52 ML/MIN (>=60); GFR NON AFRICAN AMERICAN 45 ML/MIN (>=60); GLUCOSE, SERUM 129 MG/DL (60-99); POTASSIUM, SERUM 3.6 MMOL/L (3.5-5.3); SODIUM, SERUM 139 MMOL/L (135-148)
[2016-10-25 06:04] LABS: INTERNATIONAL NORMAL RATI 1.9 UNITS (-); PROTIME (NOT ORD) 21.8 SEC (12.0-14.5)
[2016-10-25 10:20] LABS: BUN (BLOOD UREA NITROGEN) 23 MG/DL (6-23); CALCIUM, SERUM 9.2 MG/DL (8.5-10.4); CHLORIDE, SERUM 99 MMOL/L (96-112); CO2 (CARBON DIOXIDE) 28 MMOL/L (24-34); CREATININE 1.56 MG/DL (0.70-1.30); GFR AFRICAN AMERICAN 51 ML/MIN (>=60); GFR NON AFRICAN AMERICAN 44 ML/MIN (>=60); POTASSIUM, SERUM 3.9 MMOL/L (3.5-5.3); SODIUM, SERUM 135 MMOL/L (135-148)
[2016-10-25 10:21] LABS: GLUCOSE, SERUM 172 MG/DL (60-99)
[2016-10-26] MEDS ORDERED: L20 PO (15:00)
[2016-10-26] MEDS ORDERED: ELIQUIS 5 MG TAB5 MG PO (15:01)
[2016-10-26] MEDS ORDERED: LIPITOR20 PO (15:01)
[2016-12-08] MEDS ORDERED: ZINC220C (15:01)
[2016-12-08] MEDS ORDERED: DSS PO (15:01)
[2016-12-08] MEDS ORDERED: SENTAB PO (15:01)
[2016-12-21] MEDS ORDERED: *UNABLE1 (04:01)
[2016-12-21] MEDS ORDERED: L20 PO (11:39)
[2016-12-21] MEDS ORDERED: APRES10B PO (11:40)
[2016-12-21] MEDS ORDERED: SENTAB PO (11:40)
[2016-12-21] MEDS ORDERED: GLUCPH PO (11:40)
[2016-12-21] MEDS ORDERED: IMDUR30 PO (11:40)
[2016-12-21] MEDS ORDERED: ZOL50 PO (11:40)
[2016-12-21] MEDS ORDERED: CORDARONE PO (11:41)
[2016-12-21] MEDS ORDERED: ASAB PO (11:41)
[2016-12-21] MEDS ORDERED: ELIQUIS 5 MG TAB5 MG PO (11:41)
[2016-12-21] MEDS ORDERED: LIPITOR20 PO (11:42)
[2016-12-21] MEDS ORDERED: COREG6 PO (11:42)
[2016-12-21] MEDS ORDERED: PEP20 PO (11:43)
== END 2016-10-26 18:00 | disposition home or self-care (01) | DRG 291 ==
LOC: ER 13:26 → 6NO 19:52
PROVIDERS: Emergency Medicine; Internal Medicine
DX: I13.0 Hypertensive heart and chronic kidney disease with heart failure and stage 1 through stage 4 chronic kidney disease, or unspecified chronic kidney disease (principal); I50.23 Acute on chronic systolic (congestive) heart failure; I48.4 Atypical atrial flutter; E11.22 Type 2 diabetes mellitus with diabetic chronic kidney disease; I25.5 Ischemic cardiomyopathy; E87.5 Hyperkalemia; I25.10 Atherosclerotic heart disease of native coronary artery without angina pectoris; N18.3 Chronic kidney disease, stage 3 (moderate); I48.2 Chronic atrial fibrillation; D64.9 Anemia, unspecified; E78.5 Hyperlipidemia, unspecified; I34.0 Nonrheumatic mitral (valve) insufficiency; I87.2 Venous insufficiency (chronic) (peripheral); Z86.718 Personal history of other venous thrombosis and embolism; Z95.1 Presence of aortocoronary bypass graft; Z86.73 Personal history of transient ischemic attack (TIA), and cerebral infarction without residual deficits; Z79.82 Long term (current) use of aspirin; Z85.820 Personal history of malignant melanoma of skin; Z79.4 Long term (current) use of insulin; Z79.01 Long term (current) use of anticoagulants; Z87.891 Personal history of nicotine dependence; W19.XXXA Unspecified fall, initial encounter; Z87.01 Personal history of pneumonia (recurrent)
CPT/HCPCS: 71010; 71020; 72170; 80048; 80076; 81001; 82962; 83605; 83735; 83874; 83880; 84145; 84484; 85025; 85610; 85730; 87040; 87449; 93005; 97162-GP; 97530-GP; 99285; A9270-GY; G8978-CK-GP; G8979-CI-GP; J0610; J3475